=== PATIENT | female | born 1940 | race Caucasian/White ===

== ENCOUNTER 2016-11-17 14:24 | Inpatient (IN) | payer MEDICARE, BC ==
--- NOTE | 2016-11-17 15:45 | RAD ---
HISTORY: Pain after fall COMPARISONS: None VIEWS: 6, Frontal view of the chest with frontal and oblique views of the left hemithorax FINDINGS: There is no displaced rib fracture or pneumothorax. The cardiac silhouette is mildly enlarged. There is patchy linear opacification lung bases bilaterally. IMPRESSION: NO DISPLACED RIB FRACTURE OR PNEUMOTHORAX. CLINICALLY. BIBASILAR ATELECTASIS VERSUS CONSOLIDATION.
[2016-11-17] MEDS ORDERED: Morphine INJ* 4 MG/ML 1 ML CARPUJECT IM ONE (15:56)
[2016-11-17] MEDS ORDERED: Ondansetron ODT TAB* 4 MG PO ONE (15:56)
--- NOTE | 2016-11-17 16:39 | RAD ---
Indication: LEFT shoulder pain post fall. Comparison: January 04, 2013 chest radiograph. Technique: Internal rotation AP, external rotation Grashey, scapular Y, axillary views LEFT shoulder Report: Normal acromioclavicular and glenohumeral joint alignment. Negative for fracture. Moderate osteophytosis and capsular hypertrophy at the acromial clavicular joint with suggestion of small loose bodies at the AC joint versus extensive chondrocalcinosis and dystrophic calcification of the joint capsule. Mild osteophytic lipping at the glenohumeral joint and moderate joint space narrowing. Mild burden of calcific tendinopathy at the supraspinatus and infraspinatus. Unremarkable soft tissue contours. IMPRESSION: 1. 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 2. Less marked osteoarthritis at the glenohumeral joint. 3. Stigmata of calcific tendinopathy. 4. Negative for fracture.
[2016-11-17] MEDS ORDERED: oxyCODONE/Acetamin 5/325 MG* TAB PO ONE (17:42)
[2016-11-17] MEDS ORDERED: oxyCODONE TAB* 5 MG TAB PO ONE (20:56)
[2016-11-17] MEDS ORDERED: HYDROmorphone INJ* 1 MG/ML CARPUJECT SYRINGE IV SLOW PU ONE (21:28)
[2016-11-17 21:44] LABS: Hematocrit 36 % (35-47); Hemoglobin 11.6 g/dl (12.0-16.0); Mean Corpuscular HGB Conc 32 g/dl (31-36); Mean Corpuscular Hemoglobin 33 pg (27-31); Mean Corpuscular Volume 102 fL (80-97); Mean Platelet Volume 8 um3 (7.4-10.4); Red Blood Count 3.56 10^6/ul (4.0-5.4); Red Cell Distribution Width 14 % (10.5-15); White Blood Count 11.8 10^3/ul (3.5-10.8)
[2016-11-17 21:58] LABS: Albumin 3.9 g/dL (3.2-5.2); BUN/Creatinine Ratio 20.6 (8-20); Calcium 9.6 mg/dL (8.6-10.3); EGFR African American 33.3 (>60); EGFR Non-African American 25.9 (>60); Globulin 3.3 g/dL (2-4); Potassium 5.2 mmol/L (3.5-5.0); Total Bilirubin 0.5 mg/dL (0.2-1.0); Total Protein 7.2 g/dL (6.4-8.9)
--- NOTE | 2016-11-17 22:31 | RAD ---
INDICATION: Bruising and pain overlying the left flank after a fall from a standing height COMPARISON: None. TECHNIQUE: Multidetector CT images of the chest and abdomen were obtained from the lung apices to the pelvic inlet without intravenous contrast . CHEST: The lungs exhibit mild bilateral groundglass opacification as well as centrilobular emphysematous changes. There is no pneumothorax or large pleural effusion. There is no mediastinal or hilar lymphadenopathy. The heart and major vascular structures are grossly normal in appearance. There is coarse atherosclerotic calcification of the coronary arteries and arch of the aorta. There is nondisplaced fracture at the posterior left 12th rib (image 63), the posterior left eighth rib (image 34), the posterior left seventh rib (image 27), the posterior lateral left sixth rib (image 24) and the posterior lateral left fifth rib (image 19). The sixth rib fracture exhibits the greatest degree of displacement. Depicted best on the sagittal plane images (61 through 63) there is cortical irregularity at the tip of the scapula but the margins seem adequately corticated giving it more of a chronic appearance. There is no focal inflammatory change surrounding this appearance. ABDOMEN \T\ PELVIS: The liver, spleen, pancreas and left adrenal gland are grossly normal in appearance. The gallbladder is normal. At the medial limb of the left adrenal gland (image 52) there is an 11 mm fat density nodule. The kidneys are normal in appearance without focal mass, calcification or signs of hydronephrosis. The visualized portions of the small and large bowel are not distended. Distal colonic diverticula are noted, , none with focal inflammatory change. There is coarse atherosclerotic calcification of the abdominal aorta extending to the iliac bifurcation. Multifocal degenerative changes of the thoracic and upper lumbar spine include loss of intervertebral disc height and marginal osteophyte formation and lower thoracic and lumbar level vacuum disc phenomenon. No definite vertebral body fracture is identified. IMPRESSION: 1. Multiple posterior lateral left rib fractures as described above with only the 6th rib fracture exhibiting any significant displacement. There is no left-sided pneumothorax or large pleural effusion. 2. Cortical irregularity at the tip of the left scapula may been a fracture as well, but the margins indicate a more chronic process. 3. 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 There are no prior CT images to comment on chronicity. This finding can either be followed up or further characterized with multiphase CT or MRI of the abdomen according to an adrenal gland protocol. Clinical significance is doubtful. 4. Mild diffuse groundglass opacification and thickening of the interlobular septa could be due to chronic congestive heart failure or early interstitial lung disease. 5. There are additional chronic and degenerative changes described in the body the report unlikely to BE related to the patient's acute presentation.
[2016-11-17] MEDS ORDERED: NS 0.9% 500 ML BAG* 500 ML IV SCH (23:45)
[2016-11-17] MEDS ORDERED: Morphine INJ* 2 MG/ML 1 ML CARPUJECT IV PRN (23:57)
[2016-11-17] MEDS ORDERED: Acetaminophen TAB* 325 MG PO PRN (23:57)
[2016-11-18] MEDS ORDERED: Dextrose 50% Syringe 50 ML* 25 GM/50 ML SYRINGE IV PUSH PRN (00:03)
--- NOTE | 2016-11-18 00:08 | ED ---
I, Vasquez Moore, scribed for Roney Sims MD on 11/17/16 at 2322 . Progress - Progress Note Progress Note: 76yo female is here for left rib pain s/p mechanical fall. Signout pt from Dr. Schulz. Pending CT report. - Results/Orders Results/Orders: CT Chest/Abdomen W/O IMPRESSION: 1. Multiple posterior lateral left rib fractures as described above with only the 6th rib fracture exhibiting any significant displacement. There is no left-sided pneumothorax or large pleural effusion. 2. Cortical irregularity at the tip of the left scapula may been a fracture as well, but the margins indicate a more chronic process. 3. 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 There are no prior CT images to comment on chronicity. This finding can either be followed up or further characterized with multiphase CT or MRI of the abdomen according to an adrenal gland protocol. Clinical significance is doubtful. 4. Mild diffuse groundglass opacification and thickening of the interlobular septa could be due to chronic congestive heart failure or early interstitial lung disease. 5. There are additional chronic and degenerative changes described in the body the report unlikely to BE related to the patient's acute presentation. ED physician has reviewed the radiology report and agrees with the finding. Re-Evaluation - Re-Evaluation First Eval Re-Evaluation Time: 23:09 Comment: Reviewed CT report with the pt. Course/Dx - Course Course Of Treatment: Discussed with Dr. Vega (hospitalist) at [address] Vega will evaluate the pt. - Diagnoses Provider Diagnoses: Left rib fracture, possible scapular fracture The documentation as recorded by the Oscar poole Benjamin accurately reflects the service I personally performed and the decisions made by , Roney Sims MD.
[2016-11-18] MEDS ORDERED: Morphine INJ* 4 MG/ML 1 ML CARPUJECT ONE (00:54)
[2016-11-18] MEDS ORDERED: Morphine INJ* 4 MG/ML 1 ML CARPUJECT IV PRN (01:26)
[2016-11-18] MEDS: Lidocaine PATCH 5%* 1 PATCH TRANSDERM SCH (02:25)
[2016-11-18] MEDS: oxyCODONE TAB* 5 MG TAB PO PRN (02:28)
--- NOTE | 2016-11-18 02:59 | HP ---
CC: Dr. Lopez * HISTORY AND PHYSICAL: DATE OF ADMISSION: 11/17/16 PRIMARY CARE PHYSICIAN: Dr. Lopez CHIEF COMPLAINT: Status post fall and left chest pain. HISTORY OF PRESENT ILLNESS: The patient is a 76-year-old female with history of diabetes, hypertension, oxygen-dependent COPD who was picking up her pants today while in the bathroom and she tripped when she did that, fell and her left upper chest and left upper back hit the toilet seat. She had extreme pain afterwards and she came into ED for evaluation. Here a CT of the chest, abdomen and pelvis showed 5 broken ribs on the left side. She is going to be admitted for intractable pain and left-sided rib fractures. PAST MEDICAL HISTORY: 1. History of degenerative disk disease. 2. History of diabetes type 2. 3. Hypertension. 4. Hyperlipidemia. 5. Obesity. 6. COPD, oxygen dependent. 7. History of gout. 8. History of right leg ORIF. 9. Chronic kidney disease stage 3 due to diabetes. MEDICATIONS: Include: 1. Ultram 50 mg 3 times a day as needed. 2. Lantus insulin 42 units subcutaneously b.i.d. 3. Simvastatin 20 mg a day. 4. Neurontin 600 mg 3 times a day. 5. Levothyroxine 75 mcg daily. 6. Glipizide 10 mg b.i.d. 7. Potassium chloride 10 mEq daily. 8. Metformin 1000 mg b.i.d. 9. Atenolol with chlorthalidone 50/25 one tablet a day. 10. Amlodipine 2.5 mg daily. ALLERGIES: Multiple and include CEPHALEXIN, CI PIGMENT BLUE 63 from CYMBALTA, DULOXETINE, PENICILLINS, BACTRIM, and GANTRISIN. FAMILY HISTORY: Positive for mother with history of dementia and father with history of diabetes, heart disease, and polio. SOCIAL HISTORY: The patient had quit smoking in 1998. She denies any alcohol or drug use. She lives with her daughter who is a nurse and her . As a surrogate, she mentions both her and her daughter. Her 's name is Kevin Burch and daughter is Mary Schafer. REVIEW OF SYSTEMS: Please see history of present illness. Patient had been in her usual state of health until the fall. After her fall, she noted that severe left chest and left upper back pain. She denies losing consciousness with the fall. She stated that it was purely mechanical. She also denies losing consciousness after the fall. All the remaining 14 systems were reviewed with the patient and were otherwise negative. PHYSICAL EXAMINATION GENERAL: The patient is a pleasant 76-year-old female, whose BMI is 43. The patient is in no acute distress. Alert, awake, and oriented x3. VITAL SIGNS: Blood pressure of 141/96, heart rate of 56 and regular, respiratory rate 16, and oxygen saturation 90% on 2 L of oxygen nasal cannula, temperature of 98.2. HEENT: Head atraumatic and normocephalic. Eyes: Pupils are equal and reactive to light and accommodation. Oropharynx clear, mucosa moist. NECK: Supple. No JVD. No bruits bilaterally. RESPIRATORY: Coarse crackles at bilateral bases, otherwise clear. CARDIOVASCULAR: Regular rate and rhythm. No murmur. ABDOMEN: Soft and nontender. Bowel sounds are present in all 4 quadrants. EXTREMITIES: There is a trace bilateral ankle edema. Pulses +2 bilaterally. No clubbing or cyanosis. NEUROLOGIC: Speech clear. Cranial nerves II through XII are grossly intact. Motor strength is 5/5 bilaterally. PSYCHIATRIC: The patient is pleasant, cooperative with evaluation with no evidence of anxiety or depression. SKIN: The patient has a rather large area of ecchymosis overlying the left chest and left upper back. DIAGNOSTIC STUDIES/LAB DATA: Sodium of 137, potassium of 5.2, chloride 109, carbon dioxide 20, BUN 39, creatinine 1.89. Liver function tests unremarkable. White blood cell count of 11.8, hemoglobin of 11.6, hematocrit of 36, and MCV of 102, and platelets of 212. CT of chest and abdomen - impression: "Multiple posterolateral rib fractures as described above with only the 6th rib fracture exhibiting any significant displacement. There is no left-sided pneumothorax or pleural effusion. Cortical irregularity at the tip of the left scapula may be a fracture as well, but the margins indicate a more chronic process. 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 There are no prior CT images to comment on chronicity. This finding is either to be followed up with further images of CT or MRI of the abdomen according to adrenal gland protocol. Clinical significance is doubtful. Mild diffuse ground-glass opacification and thickening of the interlobular septa could be due to chronic congestive heart failure or an interstitial lung disease. There are additional chronic and degenerative changes as described in the body of the report, likely to be related to the patient's acute presentation." Shoulder x-ray on the left - impression: "Advanced osteoarthritis of acromioclavicular joint with progression. Less marked osteoarthritis of the glenohumeral joint. Stigmata of calcific tendinopathy. Negative for fracture. " ASSESSMENT AND PLAN: 1. Patient has a chest trauma after a fall. She suffered from 5 rib fractures , out of them only one is displaced. So far she is going to be admitted for pain control. There is no noted pneumothorax and no other trauma. Dilaudid made her "woozy and weak." I am going to continue the patient on morphine and oxycodone. She may require a nerve block in the future if she continues to have problems with pain control. 2. In regards to the patient's diabetes, her glipizide is going to be continued. Metformin is going to be held. The patient is going to be placed on 10 units of Lantus and insulin sliding scale. 3. In regards to the patient's hypertension, I will continue atenolol for the time being and observe the patient's blood pressure. 4. Patient's hyperkalemia is mild. I will hold the patient's lisinopril for the time being. 5. In regards to patient's chronic obstructive pulmonary disease, it is not an exacerbation. She is going to be continued on Advair and oxygen supplementation. 6. For DVT prophylaxis. The patient is going to be placed on heparin subcutaneously. 7. Due to her recent fall, Physical Therapy and Occupational Therapy will see patient in evaluation. 8. The patient's code status is full. TIME SPENT: Please note that approximately 62 minutes was spent on the patient' s admission, more than half that time was spent [id number] with the patient during the interview and physical exam. [id number]/[facility] #: [id number] LIDIA
[2016-11-18] MEDS: Levothyroxine TAB* 75 MCG TAB PO SCH (06:12)
[2016-11-18 06:16] LABS: Hematocrit 33 % (35-47); Hemoglobin 10.7 g/dl (12.0-16.0); Mean Corpuscular HGB Conc 32 g/dl (31-36); Mean Corpuscular Hemoglobin 33 pg (27-31); Mean Corpuscular Volume 102 fL (80-97); Mean Platelet Volume 8 um3 (7.4-10.4); Red Blood Count 3.26 10^6/ul (4.0-5.4); Red Cell Distribution Width 15 % (10.5-15); White Blood Count 11.3 10^3/ul (3.5-10.8)
[2016-11-18] MEDS: Heparin VIAL(*) 5000 UNITS/ML VIAL (FIVE THOUSAND) SUBCUT SCH ×3 (06:16→21:44)
[2016-11-18 06:18] LABS: Comments Flag Yes
[2016-11-18 06:19] LABS: Add Diff/Slide Review? Slide Review Added
[2016-11-18 06:28] LABS: BUN/Creatinine Ratio 21.9 (8-20); Calcium 9.1 mg/dL (8.6-10.3); EGFR African American 34.6 (>60); EGFR Non-African American 26.9 (>60)
[2016-11-18 07:48] LABS: Potassium 5.3 mmol/L (3.5-5.0)
[2016-11-18] MEDS: Insulin LISPRO* 1 UNITS UNIT SUBCUT SCH ×4 (08:22→21:15)
[2016-11-18] MEDS: Insulin GLARGINE(*) 1 UNITS UNIT SUBCUT SCH (08:23)
[2016-11-18] MEDS: amLODIPine TAB* 5 MG PO SCH (08:24)
[2016-11-18] MEDS: Gabapentin CAP(*) 300 MG PO SCH ×3 (08:24→21:44)
[2016-11-18] MEDS: Atenolol TAB* 50 MG PO SCH (08:25)
[2016-11-18] MEDS: Senna TAB PO SCH ×2 (08:25→21:44)
[2016-11-18] MEDS: Docusate CAP* 100 MG PO SCH ×2 (08:25→21:43)
[2016-11-18] MEDS: glipiZIDE TAB* 5 MG PO SCH ×2 (08:25→21:44)
[2016-11-18] MEDS: Lidocaine Patch REMOVE* 1 NOTE MISC PATCH OFF SCH (13:30)
--- NOTE | 2016-11-18 14:19 | PN ---
Subjective Date of Service: 11/18/16 Interval History: Patient seen this morning. Reports continued rib pain with movement and very deep breathing, not too bothersome when at rest. Reports that current dose of morphine does not touch the pain. Family History: Unchanged from Admission Social History: Unchanged from Admission Past Medical History: Unchanged from Admission Objective Active Medications: Acetaminophen (Tylenol Tab*) 650 mg PO Q4H PRN Amlodipine Besylate (Norvasc Tab*) 2.5 mg PO DAILY G[facility] Atenolol (Tenormin Tab*) 50 mg PO DAILY [facility] Dextrose (D50w Syringe 50 Ml*) 12.5 gm IV PUSH .FOR FS < 60 - SS PRN Docusate Sodium (Colace Cap*) 100 mg PO BID G[place] Gabapentin (Neurontin Cap(*)) 600 mg PO TID [facility] Glipizide (Glucotrol Tab*) 10 mg PO BID [facility] Heparin Sodium (Porcine) (Heparin Vial(*)) 5,000 units SUBCUT Q8HR [facility] Insulin Glargine (Lantus(*)) 10 units SUBCUT Q24H [place] Insulin Human Lispro (Humalog*) 0 units SUBCUT ACHS [facility] Levothyroxine Sodium (Synthroid Tab*) 75 mcg PO 0600 [place] Lidocaine (Lidoderm 5% Patch*) 1 patch TRANSDERM 0900 [place] Morphine Sulfate (Morphine Inj (Syringe)*) 6 mg IV Q4H PRN Oxycodone HCl (Roxycodone Tab*) 10 mg PO Q4H PRN Pharmacy Profile Note (Lidocaine Patch Remove*) 1 note PATCH OFF 2100 [place] Senna (Senokot Tab*) 1 tab PO BID ON LICENSE OF [facility] Vital Signs 11/18/16 11/18/16 11/18/16 00:00 00:01 00:30 Temperature Pulse Rate 56 56 50 Respiratory Rate Blood Pressure 158/60 80/58 (mmHg) O2 Sat by Pulse 87 88 94 Oximetry 11/18/16 11/18/16 11/18/16 00:40 00:43 00:50 Temperature 97.9 F Pulse Rate 58 55 Respiratory 16 18 Rate Blood Pressure 154/59 154/59 (mmHg) O2 Sat by Pulse 96 92 Oximetry 11/18/16 11/18/16 11/18/16 02:00 02:28 03:47 Temperature 97.7 F 97.8 F Pulse Rate 57 51 Respiratory 18 22 20 Rate Blood Pressure 161/40 136/41 (mmHg) O2 Sat by Pulse 97 95 Oximetry Oxygen Devices in Use Now: Nasal Cannula Appearance: Elderly, obese, F, laying in bed in NAD Eyes: No Scleral Icterus Ears/Nose/Mouth/Throat: Mucous Membranes Moist Neck: NL Appearance and Movements; NL JVP Respiratory: Symmetrical Chest Expansion and Respiratory Effort, - - Diminished in bases Cardiovascular: NL Sounds; No Murmurs; No JVD, RRR Abdominal: NL Sounds; No Tenderness; No Distention Lymphatic: No Cervical Adenopathy Extremities: No Edema Skin: - - Ecchymosis along L later chest wall and back Neurological: Alert and Oriented x 3 Result Diagrams: 11/18/16 05:54 11/18/16 05:54 Assess/Plan/Problems-Billing Assessment: Mechanical fall and subsequent rib fxs in a 76 yo F with hx of HTN, HLD, obesity , O2 dependent COPD, DM - Patient Problems (1) Rib fractures Current Visit: Yes Comment: Pain control. Will increase prn morphine. Incentive spirometer. PT/OT (2) Diabetes Current Visit: Yes Comment: Continue HISS and Lantus. Holding home metformin. Continue Glipizide. (3) HTN (hypertension) Current Visit: Yes Comment: Continue Atenolol. Holding home Lisinopril. (4) O2 dependent Current Visit: Yes Comment: Patient denies COPD but is on home O2. Will need med rec. (5) DVT prophylaxis Current Visit: Yes Comment: HSQ Status and Disposition: Inpatient for continued pain control. ?need for GENIA
[2016-11-18] MEDS: Morphine INJ* 10 MG/ML 1 ML CARPUJECT IV PRN ×2 (17:39→21:45)
[2016-11-19] MEDS: oxyCODONE TAB* 5 MG TAB PO PRN ×2 (04:42→09:33)
[2016-11-19] MEDS: Levothyroxine TAB* 75 MCG TAB PO SCH (05:52)
[2016-11-19] MEDS: Heparin VIAL(*) 5000 UNITS/ML VIAL (FIVE THOUSAND) SUBCUT SCH ×3 (05:52→21:39)
[2016-11-19] MEDS: Morphine INJ* 10 MG/ML 1 ML CARPUJECT IV PRN (07:45)
[2016-11-19] MEDS: Insulin LISPRO* 1 UNITS UNIT SUBCUT SCH ×4 (08:43→22:19)
--- NOTE | 2016-11-19 09:05 | PN ---
Subjective Date of Service: 11/19/16 Interval History: Patient seen this morning. Nursing reported she had little pain control overnight and she received dose of morphine within the past two hours. On exam patient is very lethargic, will awaken to questions but quickly fall back asleep. While awake says she is in 10/10 pain but then dozes off again. Family History: Unchanged from Admission Social History: Unchanged from Admission Past Medical History: Unchanged from Admission Objective Active Medications: Acetaminophen (Tylenol Tab*) 975 mg PO TID [facility] Allopurinol (Zyloprim Tab*) 100 mg PO DAILY [facility] Amlodipine Besylate (Norvasc Tab*) 2.5 mg PO DAILY [facility] Last Admin: 11/18/16 08:24 Dose: 2.5 mg Atenolol (Tenormin Tab*) 50 mg PO DAILY [facility] Last Admin: 11/18/16 08:25 Dose: 50 mg Atorvastatin Calcium (Lipitor*) 10 mg PO DAILY [facility] Calcitriol (Rocaltrol Cap*) 0.25 mcg PO DAILY [facility] Dextrose (D50w Syringe 50 Ml*) 12.5 gm IV PUSH .FOR FS < 60 - SS PRN PRN Reason: FS < 60 Docusate Sodium (Colace Cap*) 100 mg PO BID [facility] Last Admin: 11/18/16 21:43 Dose: 100 mg Gabapentin (Neurontin Cap(*)) 600 mg PO TID [facility] Last Admin: 11/18/16 21:44 Dose: 600 mg Glipizide (Glucotrol Tab*) 10 mg PO BID [facility] Last Admin: 11/18/16 21:44 Dose: 10 mg Heparin Sodium (Porcine) (Heparin Vial(*)) 5,000 units SUBCUT Q8HR [facility] Last Admin: 11/19/16 05:52 Dose: 5,000 units Insulin Glargine (Lantus(*)) 10 units SUBCUT Q24H [facility] Last Admin: 11/18/16 08:23 Dose: 10 units Insulin Human Lispro (Humalog*) 0 units SUBCUT ACHS [facility] PRN Reason: Protocol Last Admin: 11/19/16 08:43 Dose: Not Given Levothyroxine Sodium (Synthroid Tab*) 75 mcg PO 0600 [facility] Last Admin: 11/19/16 05:52 Dose: 75 mcg Lidocaine (Lidoderm 5% Patch*) 1 patch TRANSDERM 0900 [facility] Last Admin: 11/18/16 02:25 Dose: 1 patch Morphine Sulfate (Morphine Inj (Syringe)*) 6 mg IV Q4H PRN PRN Reason: PAIN Last Admin: 11/19/16 07:45 Dose: 6 mg Oxycodone HCl (Roxycodone Tab*) 10 mg PO Q4H PRN PRN Reason: PAIN Last Admin: 11/19/16 04:42 Dose: 10 mg Pharmacy Profile Note (Lidocaine Patch Remove*) 1 note PATCH OFF 2100 [facility] Last Admin: 11/18/16 13:30 Dose: 1 note Senna (Senokot Tab*) 1 tab PO BID [facility] Last Admin: 11/18/16 21:44 Dose: 1 tab Vital Signs 11/18/16 11/18/16 11/18/16 09:26 09:53 10:24 Temperature 97.4 F Pulse Rate 46 Respiratory 20 20 18 Rate Blood Pressure 145/51 (mmHg) O2 Sat by Pulse 97 Oximetry 11/18/16 11/18/16 11/18/16 11:46 13:24 15:24 Temperature 97.6 F Pulse Rate 46 Respiratory 16 18 18 Rate Blood Pressure 133/76 (mmHg) O2 Sat by Pulse 92 Oximetry 11/19/16 11/19/16 06:51 07:45 Temperature 98.0 F Pulse Rate 47 Respiratory 28 20 Rate Blood Pressure 151/46 (mmHg) O2 Sat by Pulse 90 Oximetry Oxygen Devices in Use Now: Nasal Cannula - 3L Appearance: Elderly, F, laying in bed, lethargic Eyes: No Scleral Icterus Ears/Nose/Mouth/Throat: - - Dry MM Neck: NL Appearance and Movements; NL JVP Respiratory: Symmetrical Chest Expansion and Respiratory Effort, - - Diminished in bases Cardiovascular: NL Sounds; No Murmurs; No JVD, RRR Abdominal: NL Sounds; No Tenderness; No Distention Lymphatic: No Cervical Adenopathy Extremities: No Edema Skin: No Rash or Ulcers Neurological: - - Lethargic, oriented, no focal deficits Result Diagrams: 11/18/16 05:54 11/19/16 14:09 Assess/Plan/Problems-Billing Assessment: Mechanical fall and subsequent rib fxs in a 76 yo F with hx of HTN, HLD, obesity , O2 dependent COPD, DM - Patient Problems (1) Rib fractures Current Visit: Yes Comment: Pain control. Will hold on any increases for now and monitor mental status prior to additional narcotics. Stop gabapentin. Will add ATC tylenol. Continue Lidoderm patch. Incentive spirometer. PT/OT (2) Diabetes Current Visit: Yes Comment: Continue HISS and Lantus. Holding home metformin. Continue Glipizide. (3) CASE (acute kidney injury) Current Visit: Yes Comment: on CKD. Creatinine bumped today, ?pre-renal, poor PO intake. Will give 1L IVF. Check ulytes, UA. Stop gabapentin. (4) HTN (hypertension) Current Visit: Yes Comment: Continue Atenolol. Holding home Lisinopril. (5) O2 dependent Current Visit: Yes Comment: Patient denies COPD but is on home O2. (6) DVT prophylaxis Current Visit: Yes Comment: HSQ Status and Disposition: Inpatient for continued pain control. ?need for GENIA
[2016-11-19] MEDS: Lidocaine PATCH 5%* 1 PATCH TRANSDERM SCH (09:23)
[2016-11-19] MEDS: Atenolol TAB* 50 MG PO SCH (09:31)
[2016-11-19] MEDS: Insulin GLARGINE(*) 1 UNITS UNIT SUBCUT SCH (09:31)
[2016-11-19] MEDS: Atorvastatin* 10 MG TAB PO SCH (09:32)
[2016-11-19] MEDS: Allopurinol TAB* 100 MG PO SCH (09:32)
[2016-11-19] MEDS: Senna TAB PO SCH ×2 (09:32→21:40)
[2016-11-19] MEDS: Gabapentin CAP(*) 300 MG PO SCH (09:32)
[2016-11-19] MEDS: glipiZIDE TAB* 5 MG PO SCH (09:32)
[2016-11-19] MEDS: amLODIPine TAB* 5 MG PO SCH (09:33)
[2016-11-19] MEDS: Docusate CAP* 100 MG PO SCH ×2 (09:33→21:40)
[2016-11-19] MEDS: Calcitriol CAP* 0.25 MCG PO SCH (09:40)
[2016-11-19 10:56] LABS: BUN/Creatinine Ratio 18.7 (8-20); EGFR African American 21.8 (>60); Potassium 5.8 mmol/L (3.5-5.0)
[2016-11-19] MEDS ORDERED: HYDROmorphone INJ* 1 MG/ML CARPUJECT SYRINGE IV SLOW PU PRN (11:50)
[2016-11-19] MEDS ORDERED: NS 0.9% 1000 ML* 1,000 ML IV SCH (12:00)
[2016-11-19] MEDS: Acetaminophen TAB* 325 MG PO SCH ×2 (13:53→21:39)
[2016-11-19 14:39] LABS: BUN/Creatinine Ratio 18.2 (8-20); EGFR African American 20.2 (>60); EGFR Non-African American 15.7 (>60)
[2016-11-19 15:13] LABS: Potassium 6.1 mmol/L (3.5-5.0)
[2016-11-19] MEDS ORDERED: Sodium Polystyrene ORAL.SOL* 15 GM/60 ML BTL PO ONE (15:30)
[2016-11-19 15:34] LABS: Phosphorus 5.5 mg/dL (2.5-5.0)
[2016-11-19 15:59] LABS: FIO2 2
[2016-11-19 16:01] LABS: PCO2 Arterial 45 mmHg (35-45)
[2016-11-19] MEDS ORDERED: Naloxone* 0.4 MG/ML 1 ML VIAL IV PUSH PRN (16:13)
--- NOTE | 2016-11-19 17:58 | PN ---
Hospitalist Progress Note Patient seen multiple times throughout the day with daughter present. In the afternoon she became less lethargic although remains somewhat confused and delirious. Suspect this is due to renal failure and poor clearance of morphine and gabapentin. ABG did not show respiratory acidosis, held on giving narcan as patient became more alert. For now will hold narcotics, if she becomes more coherent and has significant pain, can consider restarting her home Tramadol to begin with. K remained elevated on PM check, gave Kayexalate.
[2016-11-19] MEDS: Lidocaine Patch REMOVE* 1 NOTE MISC PATCH OFF SCH (22:20)
[2016-11-20 00:39] LABS: Urine Bacteria Absent (Absent); Urine Bilirubin Negative (Negative); Urine Glucose Negative (Negative); Urine Nitrite Negative (Negative)
[2016-11-20] MEDS: Heparin VIAL(*) 5000 UNITS/ML VIAL (FIVE THOUSAND) SUBCUT SCH ×3 (05:40→22:02)
[2016-11-20] MEDS: Levothyroxine TAB* 75 MCG TAB PO SCH (05:40)
--- NOTE | 2016-11-20 08:15 | PN ---
Subjective Date of Service: 11/20/16 Interval History: Patient seen this morning. More alert and oriented. Recalls why she is here and what happened. Reports feeling better than yesterday, still with pain. Not taking much PO. Denies SOB, subjective f/c Family History: Unchanged from Admission Social History: Unchanged from Admission Past Medical History: Unchanged from Admission Objective Active Medications: Acetaminophen (Tylenol Tab*) 975 mg PO TID [facility] Allopurinol (Zyloprim Tab*) 100 mg PO DAILY [facility] Amlodipine Besylate (Norvasc Tab*) 2.5 mg PO DAILY [facility] Atenolol (Tenormin Tab*) 50 mg PO DAILY [facility] Atorvastatin Calcium (Lipitor*) 10 mg PO DAILY [facility] Calcitriol (Rocaltrol Cap*) 0.25 mcg PO DAILY [facility] Dextrose (D50w Syringe 50 Ml*) 12.5 gm IV PUSH .FOR FS < 60 - SS PRN Docusate Sodium (Colace Cap*) 100 mg PO BID [facility] Heparin Sodium (Porcine) (Heparin Vial(*)) 5,000 units SUBCUT Q8HR [facility] Insulin Glargine (Lantus(*)) 10 units SUBCUT Q24H [facility] Insulin Human Lispro (Humalog*) 0 units SUBCUT ACHS [facility] Levothyroxine Sodium (Synthroid Tab*) 75 mcg PO 0600 [facility] Lidocaine (Lidoderm 5% Patch*) 1 patch TRANSDERM 0900 [facility] Pharmacy Profile Note (Lidocaine Patch Remove*) 1 note PATCH OFF 2100 [facility] Senna (Senokot Tab*) 1 tab PO BID [facility] Vital Signs 11/19/16 11/19/16 11/19/16 08:45 09:32 09:33 Temperature Pulse Rate Respiratory 20 22 22 Rate Blood Pressure (mmHg) O2 Sat by Pulse Oximetry 11/19/16 11/19/16 11/20/16 20:05 23:42 02:22 Temperature 100.5 F 100.1 F 98.8 F Pulse Rate 51 52 50 Respiratory 20 24 24 Rate Blood Pressure 127/33 122/58 131/43 (mmHg) O2 Sat by Pulse 98 96 97 Oximetry Oxygen Devices in Use Now: Simple Face Mask - 5L Appearance: Elderly, F, laying in bed in mild distress Eyes: No Scleral Icterus Ears/Nose/Mouth/Throat: - - Dry MM Neck: NL Appearance and Movements; NL JVP Respiratory: - - Mild tachypnea, lungs seem clear at bases but exam limited due to pain Cardiovascular: NL Sounds; No Murmurs; No JVD, RRR Abdominal: NL Sounds; No Tenderness; No Distention Lymphatic: No Cervical Adenopathy Extremities: No Edema Skin: No Rash or Ulcers Neurological: Alert and Oriented x 3 Result Diagrams: 11/18/16 05:54 11/19/16 14:09 Assess/Plan/Problems-Billing Assessment: Mechanical fall and subsequent rib fxs in a 76 yo F with hx of HTN, HLD, obesity , O2 dependent COPD, DM - Patient Problems (1) Rib fractures Current Visit: Yes Comment: Continue ATC tylenol. Now that mental status improved will start PO tramadol, if tolerates and still has pain can go from there. Holding morphine due to renal failure. Continue Lidoderm patch. Incentive spirometer. PT/OT (2) Fever Current Visit: Yes Comment: Low grade. Concern for possible PNA due to splinting. CBC and CXR (3) Diabetes Current Visit: Yes Comment: BGs low this morning. Hold Glipizide and Lantus. Continue HISS. Holding home metformin. (4) CASE (acute kidney injury) Current Visit: Yes Comment: on CKD. Today's BMP is pending. Got 1L additinal IVF today, may need more as she is not taking much PO. FeNa <1%. No signs of infection. Hold renally-cleared centrally acting meds. Got kayexalate yesterday for hyperkalemia. (5) HTN (hypertension) Current Visit: Yes Comment: Continue Atenolol. Holding home Lisinopril. (6) O2 dependent Current Visit: Yes Comment: Patient denies COPD but is on home O2. (7) DVT prophylaxis Current Visit: Yes Comment: HSQ Status and Disposition: Inpatient for continued pain control, renal failure
[2016-11-20] MEDS: Insulin LISPRO* 1 UNITS UNIT SUBCUT SCH ×4 (08:18→21:05)
--- NOTE | 2016-11-20 08:30 | RAD ---
Indication: Hypoxia, shortness of breath. Single frontal view of the chest performed at 0805 hours was reviewed. Comparison is made with previous exam dated January 04, 2013. Cardiomegaly with interstitial edema is noted. There may be pleural effusions noted. IMPRESSION: CARDIOMEGALY WITH INTERSTITIAL EDEMA LIKELY PLEURAL EFFUSIONS.
[2016-11-20 08:55] LABS: Hematocrit 31 % (35-47); Hemoglobin 9.9 g/dl (12.0-16.0); Mean Corpuscular HGB Conc 32 g/dl (31-36); Mean Corpuscular Hemoglobin 33 pg (27-31); Mean Corpuscular Volume 103 fL (80-97); Mean Platelet Volume 8 um3 (7.4-10.4); Red Blood Count 2.99 10^6/ul (4.0-5.4); Red Cell Distribution Width 15 % (10.5-15); White Blood Count 13.3 10^3/ul (3.5-10.8)
[2016-11-20 09:09] LABS: Comments Flag Yes
[2016-11-20 09:13] LABS: BUN/Creatinine Ratio 18.3 (8-20); Calcium 8.7 mg/dL (8.6-10.3); EGFR African American 17.3 (>60); EGFR Non-African American 13.4 (>60)
[2016-11-20 09:18] LABS: Potassium 5.2 mmol/L (3.5-5.0)
[2016-11-20] MEDS ORDERED: NS 0.9% 1000 ML* 1,000 ML IV SCH (09:30)
[2016-11-20] MEDS: amLODIPine TAB* 5 MG PO SCH (09:44)
[2016-11-20] MEDS: Acetaminophen TAB* 325 MG PO SCH ×3 (09:45→20:51)
[2016-11-20] MEDS: Calcitriol CAP* 0.25 MCG PO SCH (09:47)
[2016-11-20] MEDS: Allopurinol TAB* 100 MG PO SCH (09:50)
[2016-11-20] MEDS: Senna TAB PO SCH ×2 (09:50→20:51)
[2016-11-20] MEDS: Docusate CAP* 100 MG PO SCH ×2 (09:50→20:51)
[2016-11-20] MEDS: Atorvastatin* 10 MG TAB PO SCH (09:50)
[2016-11-20] MEDS: Lidocaine PATCH 5%* 1 PATCH TRANSDERM SCH (10:09)
[2016-11-20] MEDS: Atenolol TAB* 50 MG PO SCH (11:19)
[2016-11-20] MEDS: traMADol TAB* 50 MG PO PRN ×2 (11:27→20:51)
[2016-11-20] MEDS ORDERED: Levofloxacin 500 MG IVPREMIX(* 500 MG/100 ML BAG IVPB ONE (15:00)
[2016-11-20 17:08] LABS: BUN/Creatinine Ratio 19.8 (8-20); Calcium 8.6 mg/dL (8.6-10.3); EGFR African American 17.9 (>60); EGFR Non-African American 13.9 (>60); Potassium 5.3 mmol/L (3.5-5.0)
[2016-11-20] MEDS: Lidocaine Patch REMOVE* 1 NOTE MISC PATCH OFF SCH (21:05)
[2016-11-21] MEDS: Heparin VIAL(*) 5000 UNITS/ML VIAL (FIVE THOUSAND) SUBCUT SCH ×3 (05:26→22:21)
[2016-11-21] MEDS: Levothyroxine TAB* 75 MCG TAB PO SCH (05:27)
[2016-11-21 06:32] LABS: Hematocrit 30 % (35-47); Hemoglobin 9.7 g/dl (12.0-16.0); Mean Corpuscular HGB Conc 32 g/dl (31-36); Mean Corpuscular Hemoglobin 33 pg (27-31); Mean Corpuscular Volume 102 fL (80-97); Mean Platelet Volume 8 um3 (7.4-10.4); Red Blood Count 2.94 10^6/ul (4.0-5.4); Red Cell Distribution Width 15 % (10.5-15)
[2016-11-21 06:35] LABS: Comments Flag Yes
[2016-11-21 06:46] LABS: BUN/Creatinine Ratio 22.3 (8-20); Calcium 8.5 mg/dL (8.6-10.3); EGFR African American 20.3 (>60); EGFR Non-African American 15.8 (>60)
[2016-11-21 06:50] LABS: Potassium 5.4 mmol/L (3.5-5.0)
[2016-11-21] MEDS: Insulin LISPRO* 1 UNITS UNIT SUBCUT SCH ×4 (08:08→21:14)
[2016-11-21] MEDS: Ondansetron INJ* 2 MG/ML VIAL IV PRN (09:01)
[2016-11-21] MEDS: Allopurinol TAB* 100 MG PO SCH (09:17)
[2016-11-21] MEDS: Acetaminophen TAB* 325 MG PO SCH ×3 (09:17→20:48)
[2016-11-21] MEDS: Calcitriol CAP* 0.25 MCG PO SCH (09:17)
[2016-11-21] MEDS: Senna TAB PO SCH ×2 (09:17→20:49)
[2016-11-21] MEDS: Docusate CAP* 100 MG PO SCH ×2 (09:17→20:49)
[2016-11-21] MEDS: amLODIPine TAB* 5 MG PO SCH (09:17)
[2016-11-21] MEDS: Atorvastatin* 10 MG TAB PO SCH (09:17)
[2016-11-21] MEDS: Lidocaine PATCH 5%* 1 PATCH TRANSDERM SCH (09:26)
[2016-11-21] MEDS: Atenolol TAB* 50 MG PO SCH (09:27)
--- NOTE | 2016-11-21 10:26 | PN ---
Subjective Date of Service: 11/21/16 Interval History: Pt is feeling poorly. She just got back into bed from the chair. She states even at rest she is having uncontrolled pain. She denies any SOB. She has not had a BM since this past Monday. Family History: Unchanged from Admission Social History: Unchanged from Admission Past Medical History: Unchanged from Admission Objective Active Medications: Acetaminophen (Tylenol Tab*) 975 mg PO TID [facility] Last Admin: 11/21/16 09:17 Dose: 975 mg Allopurinol (Zyloprim Tab*) 100 mg PO DAILY [facility] Last Admin: 11/21/16 09:17 Dose: 100 mg Amlodipine Besylate (Norvasc Tab*) 2.5 mg PO DAILY [facility] Last Admin: 11/21/16 09:17 Dose: 2.5 mg Atenolol (Tenormin Tab*) 25 mg PO DAILY [facility] Atorvastatin Calcium (Lipitor*) 10 mg PO DAILY [facility] Last Admin: 11/21/16 09:17 Dose: 10 mg Calcitriol (Rocaltrol Cap*) 0.25 mcg PO DAILY [facility] Last Admin: 11/21/16 09:17 Dose: 0.25 mcg Dextrose (D50w Syringe 50 Ml*) 12.5 gm IV PUSH .FOR FS < 60 - SS PRN PRN Reason: FS < 60 Docusate Sodium (Colace Cap*) 100 mg PO BID [facility] Last Admin: 11/21/16 09:17 Dose: 100 mg Heparin Sodium (Porcine) (Heparin Vial(*)) 5,000 units SUBCUT Q8HR [facility] Last Admin: 11/21/16 05:26 Dose: 5,000 units Levofloxacin/Dextrose (Levaquin 250 Mg Ivpremx(*)) 250 mg in 50 mls @ 50 mls/ hr IVPB Q48H [facility] Insulin Human Lispro (Humalog*) 0 units SUBCUT ACHS [facility] PRN Reason: Protocol Last Admin: 11/21/16 08:08 Dose: Not Given Levothyroxine Sodium (Synthroid Tab*) 75 mcg PO 0600 [facility] Last Admin: 11/21/16 05:27 Dose: 75 mcg Lidocaine (Lidoderm 5% Patch*) 1 patch TRANSDERM 09 [facility] Last Admin: 11/21/16 09:26 Dose: 1 patch Nystatin (Nystatin Top Powder*) 1 applic TOPICAL TID PRN PRN Reason: [facility] Ondansetron HCl (Zofran Inj*) 4 mg IV Q6H PRN PRN Reason: NAUSEA Last Admin: 11/21/16 09:01 Dose: 4 mg Pharmacy Profile Note (Lidocaine Patch Remove*) 1 note PATCH OFF 2100 [facility] Last Admin: 11/20/16 21:05 Dose: 1 note Senna (Senokot Tab*) 1 tab PO BID [facility] Last Admin: 11/21/16 09:17 Dose: 1 tab Tramadol HCl (Ultram*) 50 mg PO Q6H PRN PRN Reason: PAIN Last Admin: 11/20/16 20:51 Dose: 50 mg Vital Signs 11/20/16 11/20/16 11/20/16 11:27 13:27 15:33 Temperature 98.2 F Pulse Rate 55 Respiratory 20 16 20 Rate Blood Pressure 149/54 (mmHg) O2 Sat by Pulse 97 Oximetry 11/20/16 11/20/16 11/20/16 16:00 19:46 20:34 Temperature Pulse Rate 49 Respiratory 16 16 Rate Blood Pressure 138/48 (mmHg) O2 Sat by Pulse 97 97 Oximetry 11/20/16 11/20/16 11/20/16 20:51 22:51 23:51 Temperature 98.2 F Pulse Rate 54 Respiratory 18 20 20 Rate Blood Pressure 126/36 (mmHg) O2 Sat by Pulse 96 Oximetry 11/21/16 02:47 Temperature 97.4 F Pulse Rate 60 Respiratory 20 Rate Blood Pressure 143/39 (mmHg) O2 Sat by Pulse 97 Oximetry Oxygen Devices in Use Now: Nasal Cannula - 3L Appearance: Elderly female sitting up in bed, NAD Eyes: No Scleral Icterus Ears/Nose/Mouth/Throat: Mucous Membranes Moist Respiratory: Symmetrical Chest Expansion and Respiratory Effort, Clear to Auscultation Cardiovascular: NL Sounds; No Murmurs; No JVD, RRR, No Edema Abdominal: NL Sounds; No Tenderness; No Distention Extremities: No Clubbing, Cyanosis Skin: No Rash or Ulcers, No Nodules or Sclerosis Neurological: Alert and Oriented x 3 Result Diagrams: 11/21/16 06:03 11/21/16 06:03 Assess/Plan/Problems-Billing Mechanical fall and subsequent rib fxs in a 76 yo F with hx of HTN, HLD, obesity , O2 dependent COPD and DM. - Patient Problems (1) Rib fractures Current Visit: Yes Status: Acute Code(s): S22.39XA - FRACTURE OF ONE RIB, UNSP SIDE, INIT FOR CLOS FX SNOMED Code(s): 37807800 Comment: The patient has posterolateral rib fractures on the left. Her pain is uncontrolled will continue ATC tylenol and start methadone 5mg BID to see if her pain is improved. Tramadol does not help at this time but perhaps with the methadone on board the tramadol will be enough for breakthrough pain. Continue lidoderm patch. Continue PT/OT. (2) Fever Current Visit: Yes Status: Acute Code(s): R50.9 - FEVER, UNSPECIFIED SNOMED Code(s): 145987570 Comment: The patient had a low grade fever on 11/19/16. WBC count and CXR are concerning for pna related to splinting from her rib fractures. Will continue levaquin renally dosed. (3) Acute kidney injury superimposed on CKD Current Visit: Yes Status: Acute Code(s): N17.9 - ACUTE KIDNEY FAILURE, UNSPECIFIED; N18.9 - CHRONIC KIDNEY DISEASE, UNSPECIFIED SNOMED Code(s): 91298515 Comment: The patient has baseline stage III CKD with a baseline creatinine around 1.8 who developed acute kidney failure while in the hospital-? secondary to poor oral intake. Her creatinine peaked at 3.34 and has now trended down to 2.91. IVF has been stopped. Encourage good oral intake. Will follow up BMP tomorrow. (4) HTN (hypertension) Current Visit: Yes Status: Acute Code(s): I10 - ESSENTIAL (PRIMARY) HYPERTENSION SNOMED Code(s): 44980694 Comment: BP is under fair control on amlodipine daily (atenolol has been held intermittently). (5) Diabetes Current Visit: Yes Status: Acute Code(s): E11.9 - TYPE 2 DIABETES MELLITUS WITHOUT COMPLICATIONS SNOMED Code(s): 81890614 Comment: Sugars remain slightly low to low normal. Continue to hold glipizide and metformin (pt should not be on this any further as her baseline creatinine is elevated). Continue the lispro sliding scale for now. I suspect her sugars may be down because of her worsened renal function. (6) COPD (chronic obstructive pulmonary disease) Current Visit: Yes Status: Acute Code(s): J44.9 - CHRONIC OBSTRUCTIVE PULMONARY DISEASE, UNSPECIFIED SNOMED Code(s): 39177183 Comment: No signs of exacerbation at this time. She has COPD and chronic hypoxic respiratory failure requiring continous O2 supplementation at 2L. (7) DVT prophylaxis Current Visit: Yes Status: Acute Code(s): FRX9629 - SNOMED Code(s): 322783064 Comment: SQ heparin (8) Full code status Current Visit: Yes Status: Acute Code(s): Z78.9 - OTHER SPECIFIED HEALTH STATUS SNOMED Code(s): 414738289 Status and Disposition: Inpatient for continued pain control, renal failure
[2016-11-21] MEDS: Methadone TAB* 5 MG PO SCH ×2 (12:17→22:52)
[2016-11-21] MEDS: Atenolol TAB* 25 MG PO SCH (12:17)
[2016-11-21] MEDS: traMADol TAB* 50 MG PO PRN (13:32)
[2016-11-21] MEDS: oxyCODONE TAB* 5 MG TAB PO PRN (14:49)
[2016-11-21] MEDS: fentaNYL* 50 MCG/ML 2 ML VIAL (100 MCG VIAL) IV SLOW PU PRN ×2 (16:15→20:45)
[2016-11-21] MEDS: Lidocaine Patch REMOVE* 1 NOTE MISC PATCH OFF SCH (20:49)
[2016-11-22] MEDS: oxyCODONE TAB* 5 MG TAB PO PRN ×2 (00:35→09:46)
[2016-11-22] MEDS: Heparin VIAL(*) 5000 UNITS/ML VIAL (FIVE THOUSAND) SUBCUT SCH ×3 (05:21→20:48)
[2016-11-22] MEDS: Levothyroxine TAB* 75 MCG TAB PO SCH (05:21)
[2016-11-22] MEDS: fentaNYL* 50 MCG/ML 2 ML VIAL (100 MCG VIAL) IV SLOW PU PRN (07:21)
[2016-11-22] MEDS: Lidocaine PATCH 5%* 1 PATCH TRANSDERM SCH (08:21)
[2016-11-22] MEDS: Insulin LISPRO* 1 UNITS UNIT SUBCUT SCH ×4 (08:24→20:47)
[2016-11-22] MEDS: Senna TAB PO SCH ×2 (08:26→20:47)
[2016-11-22] MEDS: Calcitriol CAP* 0.25 MCG PO SCH (08:26)
[2016-11-22] MEDS: amLODIPine TAB* 5 MG PO SCH (08:26)
[2016-11-22] MEDS: Atorvastatin* 10 MG TAB PO SCH (08:27)
[2016-11-22] MEDS: Docusate CAP* 100 MG PO SCH ×2 (08:27→20:47)
[2016-11-22] MEDS: Acetaminophen TAB* 325 MG PO SCH ×3 (08:27→20:47)
[2016-11-22] MEDS: Allopurinol TAB* 100 MG PO SCH (08:27)
[2016-11-22] MEDS: Atenolol TAB* 25 MG PO SCH (08:27)
[2016-11-22] MEDS: traMADol TAB* 50 MG PO PRN (08:34)
[2016-11-22 10:25] LABS: BUN/Creatinine Ratio 28.3 (8-20); Calcium 9.4 mg/dL (8.6-10.3); EGFR Non-African American 18.7 (>60); Potassium 4.9 mmol/L (3.5-5.0)
[2016-11-22] MEDS: Methadone TAB* 5 MG PO SCH (11:42)
--- NOTE | 2016-11-22 13:53 | PN ---
Subjective Date of Service: 11/22/16 Interval History: Patient seen and examined at bedside. Patient c/o of uncontrolled pain limiting her breathing. She states "nothing" really improves her pain. She can pull 1L on IS. Family History: Unchanged from Admission Social History: Unchanged from Admission Past Medical History: Unchanged from Admission Objective Active Medications: Acetaminophen (Tylenol Tab*) 975 mg PO TID [facility] Allopurinol (Zyloprim Tab*) 100 mg PO DAILY [facility] Amlodipine Besylate (Norvasc Tab*) 2.5 mg PO DAILY [facility] Atenolol (Tenormin Tab*) 25 mg PO DAILY [facility] Atorvastatin Calcium (Lipitor*) 10 mg PO DAILY [facility] Calcitriol (Rocaltrol Cap*) 0.25 mcg PO DAILY [facility] Docusate Sodium (Colace Cap*) 100 mg PO BID [facility] Heparin Sodium (Porcine) (Heparin Vial(*)) 5,000 units SUBCUT Q8HR [facility] Levofloxacin/Dextrose (Levaquin 250 Mg Ivpremx(*)) 250 mg in 50 mls @ 50 mls/ hr IVPB Q48H [facility] Insulin Human Lispro (Humalog*) 0 units SUBCUT ACHS [facility] Levothyroxine Sodium (Synthroid Tab*) 75 mcg PO 0600 [facility] Lidocaine (Lidoderm 5% Patch*) 1 patch TRANSDERM 0900 [facility] Morphine Sulfate (Morphine Oral.Soln 10 Mg*) 5 mg PO Q4H PRN Nystatin (Nystatin Top Powder*) 1 applic TOPICAL TID PRN Ondansetron HCl (Zofran Inj*) 4 mg IV Q6H PRN Pharmacy Profile Note (Lidocaine Patch Remove*) 1 note PATCH OFF 2100 [facility] Senna (Senokot Tab*) 1 tab PO BID [facility] 11/22/16 11/22/16 11/22/16 07:21 07:29 07:40 Temperature 97.9 F Pulse Rate 62 Respiratory 24 17 24 Rate Blood Pressure 173/56 (mmHg) O2 Sat by Pulse 95 Oximetry Oxygen Devices in Use Now: Nasal Cannula - 3L Appearance: sitting up in bed. Using accessory muscles to breathe Ears/Nose/Mouth/Throat: NL Teeth, Lips, Gums, Mucous Membranes Moist Neck: NL Appearance and Movements; NL JVP Respiratory: Symmetrical Chest Expansion and Respiratory Effort, - - decreased at bases Cardiovascular: NL Sounds; No Murmurs; No JVD, RRR Abdominal: NL Sounds; No Tenderness; No Distention Skin: No Rash or Ulcers Neurological: Alert and Oriented x 3, NL Muscle Strength and Tone Nutrition: Taking PO's Result Diagrams: 11/21/16 06:03 11/22/16 08:16 Assess/Plan/Problems-Billing Mechanical fall and subsequent rib fxs in a 76 yo F with hx of HTN, HLD, obesity , O2 dependent COPD and DM. - Patient Problems (1) Rib fractures Comment: The patient has posterolateral rib fractures on the left and pain uncontrolled. She became too lethargic over the weekend from IV Morphine. Will start low dose MS Contin with short acting morphine for breakthrough with strict hold parameters. Continue Lidoderm patch, ATC Tylenol and IS. (2) Fever Comment: The patient had a low grade fever on 11/19/16. WBC count and CXR are concerning for PNA related to splinting from her rib fractures. Continue renally dosed Levaquin. (3) Acute kidney injury superimposed on CKD Comment: The patient has baseline stage III CKD with a baseline creatinine around 1.8 who developed acute kidney failure while in the hospital-? secondary to poor oral intake. Her creatinine peaked at 3.34 and has now trended down to 2.5. Continue to trend Cr. (4) COPD (chronic obstructive pulmonary disease) Comment: No signs of exacerbation at this time. She has COPD and chronic hypoxic respiratory failure requiring continous O2 supplementation at 2L. (5) Diabetes Comment: Sugars slightly up in 200s. Continue to hold glipizide and metformin ( pt should not be on this any further as her baseline creatinine is elevated). Increase sliding scale coverage. (6) HTN (hypertension) Comment: BP is under fair control on amlodipine and atenolol. Lisinopril held. (7) DVT prophylaxis Comment: SQ heparin (8) Full code status Status and Disposition: Inpatient for continued pain control, renal failure
[2016-11-22] MEDS: Morphine ORAL.SOLN 10 mg* 2 MG/ML UDC 5 ml PO PRN ×3 (14:06→22:20)
[2016-11-22] MEDS: Levofloxacin 250 MG IVPREMX(*) 250 MG/50 ML BAG IVPB SCH (16:09)
[2016-11-22] MEDS ORDERED: Magnesium CITRATE* 300 ML BTL PO ONE (17:00)
[2016-11-22] MEDS ORDERED: Sodium Phosphate ADULT ENEMA* 118 ml bottle PR ONE (17:00)
[2016-11-22] MEDS: Lidocaine Patch REMOVE* 1 NOTE MISC PATCH OFF SCH (20:51)
[2016-11-23] MEDS: Morphine ORAL.SOLN 10 mg* 2 MG/ML UDC 5 ml PO PRN ×4 (04:42→18:24)
[2016-11-23] MEDS: Levothyroxine TAB* 75 MCG TAB PO SCH (04:42)
[2016-11-23] MEDS: Heparin VIAL(*) 5000 UNITS/ML VIAL (FIVE THOUSAND) SUBCUT SCH ×3 (04:43→21:56)
[2016-11-23 08:30] LABS: Comments Flag Yes; Hematocrit 32 % (35-47); Hemoglobin 10.2 g/dl (12.0-16.0); Mean Corpuscular HGB Conc 32 g/dl (31-36); Mean Corpuscular Hemoglobin 33 pg (27-31); Mean Corpuscular Volume 103 fL (80-97); Red Blood Count 3.08 10^6/ul (4.0-5.4); Red Cell Distribution Width 15 % (10.5-15); White Blood Count 23.4 10^3/ul (3.5-10.8)
[2016-11-23 08:31] LABS: Add Diff/Slide Review? Slide Review Added
[2016-11-23 08:41] LABS: BUN/Creatinine Ratio 35.9 (8-20); Blood Urea Nitrogen 80 mg/dL (6-24); CO2 Carbon Dioxide 18 mmol/L (22-32); Calcium 9.4 mg/dL (8.6-10.3); Chloride 106 mmol/L (101-111); EGFR African American 27.6 (>60); EGFR Non-African American 21.4 (>60); Glucose 166 mg/dL (70-100); Sodium 134 mmol/L (133-145)
[2016-11-23] MEDS: Atenolol TAB* 25 MG PO SCH (08:49)
[2016-11-23 09:06] LABS: Anion Gap 10 mmol/L (2-11)
[2016-11-23] MEDS: Insulin LISPRO* 1 UNITS UNIT SUBCUT SCH ×4 (09:24→21:54)
[2016-11-23] MEDS: amLODIPine TAB* 5 MG PO SCH (09:25)
[2016-11-23] MEDS: Senna TAB PO SCH ×2 (09:25→21:54)
[2016-11-23] MEDS: Calcitriol CAP* 0.25 MCG PO SCH (09:25)
[2016-11-23] MEDS: Morphine TAB Extended Release (*) 15 MG TAB.ER PO SCH ×2 (09:25→20:24)
[2016-11-23] MEDS: Docusate CAP* 100 MG PO SCH ×2 (09:26→21:55)
[2016-11-23] MEDS: Atorvastatin* 10 MG TAB PO SCH (09:26)
[2016-11-23] MEDS: Acetaminophen TAB* 325 MG PO SCH ×3 (09:26→21:54)
[2016-11-23] MEDS: Lidocaine PATCH 5%* 1 PATCH TRANSDERM SCH (09:26)
[2016-11-23] MEDS: Allopurinol TAB* 100 MG PO SCH (09:26)
[2016-11-23 10:06] LABS: Mean Platelet Volume 9 um3 (7.4-10.4)
--- NOTE | 2016-11-23 12:59 | PN ---
Subjective Date of Service: 11/23/16 Interval History: Patient seen and examined at bedside. Patient states her pain has improved. She can pull 1.5L on IS. She is down to 3L. She still has pain with movement. Had a bowel movement yesterday. Family History: Unchanged from Admission Social History: Unchanged from Admission Past Medical History: Unchanged from Admission Objective Active Medications: Acetaminophen (Tylenol Tab*) 975 mg PO TID [facility] Allopurinol (Zyloprim Tab*) 100 mg PO DAILY [facility] Amlodipine Besylate (Norvasc Tab*) 2.5 mg PO DAILY [facility] Atenolol (Tenormin Tab*) 25 mg PO DAILY [facility] Atorvastatin Calcium (Lipitor*) 10 mg PO DAILY [facility] Calcitriol (Rocaltrol Cap*) 0.25 mcg PO DAILY [facility] Dextrose (D50w Syringe 50 Ml*) 12.5 gm IV PUSH .FOR FS < 60 - SS PRN Docusate Sodium (Colace Cap*) 100 mg PO BID [facility] Heparin Sodium (Porcine) (Heparin Vial(*)) 5,000 units SUBCUT Q8HR [facility] Levofloxacin/Dextrose (Levaquin 250 Mg Ivpremx(*)) 250 mg in 50 mls @ 50 mls/ hr IVPB Q48H [facility] Insulin Human Lispro (Humalog*) 0 units SUBCUT ACHS [facility] Levothyroxine Sodium (Synthroid Tab*) 75 mcg PO 0600 [facility] Lidocaine (Lidoderm 5% Patch*) 1 patch TRANSDERM 0900 [facility] Morphine Sulfate (Ms Contin(*)) 15 mg PO Q12H [facility] Morphine Sulfate (Morphine Oral.Soln 10 Mg*) 10 mg PO Q4H PRN Nystatin (Nystatin Top Powder*) 1 applic TOPICAL TID PRN Ondansetron HCl (Zofran Inj*) 4 mg IV Q6H PRN Pharmacy Profile Note (Lidocaine Patch Remove*) 1 note PATCH OFF 2100 [facility] Senna (Senokot Tab*) 1 tab PO BID [facility] 11/23/16 11/23/16 11/23/16 07:39 08:00 09:25 Temperature 97.9 F Pulse Rate 57 Respiratory 18 18 20 Rate Blood Pressure 141/48 (mmHg) O2 Sat by Pulse 99 99 Oximetry Oxygen Devices in Use Now: Nasal Cannula - 3L Appearance: sitting up in bed, NAD Eyes: No Scleral Icterus, PERRLA Ears/Nose/Mouth/Throat: NL Teeth, Lips, Gums, Mucous Membranes Moist Neck: NL Appearance and Movements; NL JVP Respiratory: Symmetrical Chest Expansion and Respiratory Effort, Clear to Auscultation Cardiovascular: NL Sounds; No Murmurs; No JVD, RRR Abdominal: NL Sounds; No Tenderness; No Distention Skin: No Rash or Ulcers Neurological: Alert and Oriented x 3, NL Muscle Strength and Tone Lines/Tubes/Other Access: Clean, Dry and Intact Peripheral IV Result Diagrams: 11/23/16 07:38 11/23/16 09:38 Assess/Plan/Problems-Billing Mechanical fall and subsequent rib fxs in a 76 yo F with hx of HTN, HLD, obesity , O2 dependent COPD and DM. - Patient Problems (1) Rib fractures Comment: Pain improved with MS Contin and PO PRN Morphine. Will increase the dose to 10mg. She continues to pull 1.5L on IS. Continue Lidoderm patch and ATC Tylenol. Wean oxygen as tolerated. Completing a 5 day course of Levaquin for empiric tx of PNA given severity of rib fractures and fever on 11/19. (2) Fever Comment: The patient had a low grade fever on 11/19/16. WBC count and CXR are concerning for PNA related to splinting from her rib fractures. Continue renally dosed Levaquin for empiric treatment. (3) Acute kidney injury superimposed on CKD Comment: The patient has baseline stage III CKD with a baseline creatinine around 1.8 who developed acute kidney failure while in the hospital-? secondary to poor oral intake. Her creatinine peaked at 3.34 and has now trended down to 2.2. Continue to trend Cr. (4) COPD (chronic obstructive pulmonary disease) Comment: No signs of exacerbation at this time. She has COPD and chronic hypoxic respiratory failure requiring continous O2 supplementation at 2L. (5) Diabetes Comment: Sugars slightly up in 200s. Continue to hold glipizide and metformin ( pt should not be on this any further as her baseline creatinine is elevated). Increase sliding scale coverage. (6) HTN (hypertension) Comment: BP is under fair control on amlodipine and atenolol. Lisinopril held. (7) DVT prophylaxis Comment: SQ heparin (8) Full code status Status and Disposition: Inpatient for continued pain control, renal failure. 2 person assist so will need short term rehab. DC planners aware.
[2016-11-23] MEDS: Lidocaine Patch REMOVE* 1 NOTE MISC PATCH OFF SCH (21:57)
[2016-11-23] MEDS ORDERED: Famotidine TAB* 20 MG PO ONE (22:11)
[2016-11-23] MEDS: Nystatin TOP POWDER* 15 GM BTL TOPICAL PRN (22:25)
[2016-11-24 05:47] LABS: BUN/Creatinine Ratio 41.1 (8-20); Calcium 9.8 mg/dL (8.6-10.3); EGFR African American 32.7 (>60); EGFR Non-African American 25.5 (>60); Potassium 4.5 mmol/L (3.5-5.0)
[2016-11-24] MEDS: Levothyroxine TAB* 75 MCG TAB PO SCH (06:36)
[2016-11-24] MEDS: Heparin VIAL(*) 5000 UNITS/ML VIAL (FIVE THOUSAND) SUBCUT SCH ×3 (06:36→22:10)
[2016-11-24] MEDS: Docusate CAP* 100 MG PO SCH ×2 (07:58→20:49)
[2016-11-24] MEDS: Acetaminophen TAB* 325 MG PO SCH ×3 (07:58→20:49)
[2016-11-24] MEDS: Atorvastatin* 10 MG TAB PO SCH (07:58)
[2016-11-24] MEDS: Morphine TAB Extended Release (*) 15 MG TAB.ER PO SCH (07:58)
[2016-11-24] MEDS: Senna TAB PO SCH ×2 (07:59→20:50)
[2016-11-24] MEDS: Allopurinol TAB* 100 MG PO SCH (07:59)
[2016-11-24] MEDS: amLODIPine TAB* 5 MG PO SCH (07:59)
[2016-11-24] MEDS: Calcitriol CAP* 0.25 MCG PO SCH (07:59)
[2016-11-24] MEDS: Atenolol TAB* 25 MG PO SCH (07:59)
[2016-11-24] MEDS: Lidocaine PATCH 5%* 1 PATCH TRANSDERM SCH (08:02)
[2016-11-24] MEDS ORDERED: Famotidine TAB* 20 MG PO PRN (09:00)
[2016-11-24] MEDS: Insulin LISPRO* 1 UNITS UNIT SUBCUT SCH ×4 (09:47→21:31)
[2016-11-24 11:07] LABS: Hematocrit 30 % (35-47); Hemoglobin 9.9 g/dl (12.0-16.0); Mean Corpuscular HGB Conc 33 g/dl (31-36); Mean Corpuscular Hemoglobin 33 pg (27-31); Mean Corpuscular Volume 102 fL (80-97); Mean Platelet Volume 8 um3 (7.4-10.4); Red Blood Count 2.98 10^6/ul (4.0-5.4); Red Cell Distribution Width 15 % (10.5-15); White Blood Count 11.8 10^3/ul (3.5-10.8)
[2016-11-24] MEDS ORDERED: Morphine ORAL.SOLN 10 mg* 2 MG/ML UDC 5 ml PO PRN (11:09)
[2016-11-24 11:12] LABS: Add Diff/Slide Review? Slide Review Added; Comments Flag Yes
[2016-11-24] MEDS: Lisinopril TAB* 10 MG PO SCH (13:17)
--- NOTE | 2016-11-24 14:13 | PN ---
Subjective Date of Service: 11/24/16 Interval History: Patient seen and examined at bedside. Patient reports pain controlled. Patient making progress with PT. Is asking for the kaba to be removed. Family History: Unchanged from Admission Social History: Unchanged from Admission Past Medical History: Unchanged from Admission Objective Active Medications: Acetaminophen (Tylenol Tab*) 975 mg PO TID [facility] Allopurinol (Zyloprim Tab*) 100 mg PO DAILY [facility] Amlodipine Besylate (Norvasc Tab*) 2.5 mg PO DAILY [facility] Atenolol (Tenormin Tab*) 25 mg PO DAILY [facility] Atorvastatin Calcium (Lipitor*) 10 mg PO DAILY [facility] Calcitriol (Rocaltrol Cap*) 0.25 mcg PO DAILY [facility] Dextrose (D50w Syringe 50 Ml*) 12.5 gm IV PUSH .FOR FS < 60 - SS PRN Docusate Sodium (Colace Cap*) 100 mg PO BID [facility] Famotidine (Pepcid Tab*) 20 mg PO DAILY [facility] Heparin Sodium (Porcine) (Heparin Vial(*)) 5,000 units SUBCUT Q8HR [facility] Levofloxacin/Dextrose (Levaquin 250 Mg Ivpremx(*)) 250 mg in 50 mls @ 50 mls/ hr IVPB Q48H [facility] Insulin Human Lispro (Humalog*) 0 units SUBCUT ACHS [facility] Levothyroxine Sodium (Synthroid Tab*) 75 mcg PO 0600 [facility] Lidocaine (Lidoderm 5% Patch*) 1 patch TRANSDERM 0900 [facility] Lisinopril (Prinivil Tab*) 20 mg PO DAILY [facility] Morphine Sulfate (Ms Contin(*)) 15 mg PO Q12H [facility] Morphine Sulfate (Morphine Oral.Soln 10 Mg*) 5 mg PO Q4H PRN Nystatin (Nystatin Top Powder*) 1 applic TOPICAL TID PRN Ondansetron HCl (Zofran Inj*) 4 mg IV Q6H PRN Pharmacy Profile Note (Lidocaine Patch Remove*) 1 note PATCH OFF 2100 [facility] Senna (Senokot Tab*) 1 tab PO BID [facility] 11/24/16 13:19 Temperature 97.4 F Pulse Rate 50 Respiratory 20 Rate Blood Pressure 165/48 (mmHg) O2 Sat by Pulse 96 Oximetry Oxygen Devices in Use Now: Nasal Cannula - 3L Appearance: sitting up in bed, NAD Eyes: No Scleral Icterus, PERRLA Ears/Nose/Mouth/Throat: NL Teeth, Lips, Gums Neck: NL Appearance and Movements; NL JVP Respiratory: Symmetrical Chest Expansion and Respiratory Effort, Clear to Auscultation Cardiovascular: NL Sounds; No Murmurs; No JVD, RRR Abdominal: NL Sounds; No Tenderness; No Distention Extremities: No Edema Skin: No Rash or Ulcers Neurological: Alert and Oriented x 3, NL Muscle Strength and Tone Lines/Tubes/Other Access: Clean, Dry and Intact Peripheral IV Result Diagrams: 11/24/16 05:20 11/24/16 05:25 Assess/Plan/Problems-Billing Mechanical fall and subsequent rib fxs in a 76 yo F with hx of HTN, HLD, obesity , O2 dependent COPD and DM. - Patient Problems (1) Rib fractures Comment: Pain improved with MS Contin and PO PRN Morphine. Continue 5mg PRN. She continues to pull 1.5L on IS. Continue Lidoderm patch and ATC Tylenol. Oxygen down to 2L (baseline). Completing a 5 day course of Levaquin for empiric tx of PNA given severity of rib fractures and fever on 11/19. (2) Fever Comment: The patient had a low grade fever on 11/19/16. WBC trended down then was 23k yesterday. Today it is back to normal. Continue renally dosed Lervaquin for empiric treatment of PNA. (3) Acute kidney injury superimposed on CKD Comment: The patient has baseline stage III CKD with a baseline creatinine around 1.8 who developed acute kidney failure while in the hospital-? secondary to poor oral intake. Her creatinine peaked at 3.34 and is now close to baseline. Recheck in AM. (4) COPD (chronic obstructive pulmonary disease) Comment: No signs of exacerbation at this time. She has COPD and chronic hypoxic respiratory failure requiring continous O2 supplementation at 2L. (5) Diabetes Comment: Sugars slightly up in 200s. Restart Lantus at lower dose. Hold glipzide and metformin (should not be restarted due to renal function). Continue Lispro sliding scale. (6) HTN (hypertension) Comment: BP is under fair control on amlodipine and atenolol. 1/2 Lisinopril restarted this morning. (7) DVT prophylaxis Comment: SQ heparin (8) Full code status Status and Disposition: Inpatient for continued pain control, renal failure. 2 person assist so will need short term rehab. DC planners aware.
[2016-11-24] MEDS ORDERED: Insulin GLARGINE(*) 1 UNITS UNIT SUBCUT SCH ×2 (15:00→21:00)
[2016-11-24] MEDS: Levofloxacin 250 MG IVPREMX(*) 250 MG/50 ML BAG IVPB SCH (16:31)
[2016-11-24] MEDS ORDERED: Haloperidol INJ IV/IM* 5 MG/ML AMP ONE (20:43)
[2016-11-24] MEDS ORDERED: oxyCODONE TAB* 5 MG TAB PO PRN (21:00)
[2016-11-24] MEDS ORDERED: Haloperidol INJ IV/IM* 5 MG/ML AMP IV SLOW PU ONE (22:00)
[2016-11-24] MEDS: Lidocaine Patch REMOVE* 1 NOTE MISC PATCH OFF SCH (22:10)
[2016-11-25] MEDS ORDERED: Haloperidol INJ IV/IM* 5 MG/ML AMP IV ONE (04:20)
[2016-11-25] MEDS: Levothyroxine TAB* 75 MCG TAB PO SCH (04:47)
[2016-11-25] MEDS: Heparin VIAL(*) 5000 UNITS/ML VIAL (FIVE THOUSAND) SUBCUT SCH ×3 (05:09→20:48)
[2016-11-25 06:07] LABS: Hematocrit 31 % (35-47); Hemoglobin 9.9 g/dl (12.0-16.0); Mean Corpuscular HGB Conc 32 g/dl (31-36); Mean Corpuscular Hemoglobin 33 pg (27-31); Mean Corpuscular Volume 101 fL (80-97); Mean Platelet Volume 8 um3 (7.4-10.4); Red Blood Count 3.03 10^6/ul (4.0-5.4); Red Cell Distribution Width 15 % (10.5-15); White Blood Count 12.4 10^3/ul (3.5-10.8)
[2016-11-25 06:19] LABS: Add Diff/Slide Review? Slide Review Added; Comments Flag Yes
[2016-11-25 06:22] LABS: BUN/Creatinine Ratio 43.3 (8-20); EGFR African American 33.8 (>60); EGFR Non-African American 26.2 (>60); Potassium 4.5 mmol/L (3.5-5.0)
[2016-11-25] MEDS: Acetaminophen TAB* 325 MG PO SCH ×3 (08:50→20:48)
[2016-11-25] MEDS: Lisinopril TAB* 10 MG PO SCH (08:52)
[2016-11-25] MEDS: Atorvastatin* 10 MG TAB PO SCH (08:53)
[2016-11-25] MEDS: Atenolol TAB* 25 MG PO SCH (08:53)
[2016-11-25] MEDS: Senna TAB PO SCH ×2 (08:54→20:48)
[2016-11-25] MEDS: amLODIPine TAB* 5 MG PO SCH (08:55)
[2016-11-25] MEDS: Docusate CAP* 100 MG PO SCH ×2 (08:55→20:48)
[2016-11-25] MEDS: Insulin LISPRO* 1 UNITS UNIT SUBCUT SCH ×4 (08:57→20:48)
[2016-11-25] MEDS: Lidocaine PATCH 5%* 1 PATCH TRANSDERM SCH (08:58)
[2016-11-25] MEDS: Allopurinol TAB* 100 MG PO SCH (12:57)
[2016-11-25] MEDS: Calcitriol CAP* 0.25 MCG PO SCH (12:58)
--- NOTE | 2016-11-25 15:10 | ED ---
Leatha Mancini Alfonso scribed for Dario Schulz MD on 11/17/16 at 1554 . Adult Trauma - HPI Summary HPI Summary: This patient is a 76 year old F BIBA to [facility] accompanied by family s/p a fall at 0945 today. She fell in the bathroom while pulling up her pants. The patient rates the pain 10/10 in severity. Symptoms aggravated by deep breaths. Symptoms alleviated by nothing. Patient reports left rib pain, and left shoulder pain. Patient denies LOC, head trauma, and neck pain. She is on NC O2 at home and currently. PMHx includes DM. - History of Current Complaint Chief Complaint: EDGeneral Stated Complaint: LT RIB PAIN Time Seen by Provider: 11/17/16 14:42 Hx Obtained From: Patient Mechanism of Injury: Fall Loss of Consciousness: no loss of consciousness Onset/Duration: Started Hours Ago - 0945 today, Traumatic, Still Present Onset of Pain: Post Accident Current Severity: Severe Pain Intensity: 10 Pain Scale Used: 0-10 Numeric Aggravating Factor(s): Deep Breaths Alleviating Factor(s): Nothing Associated Signs & Symptoms: Positive: Other: - left rib pain, and left shoulder pain. Patient denies LOC, head trauma, and neck pain. - Allergy/Home Medications Allergies/Adverse Reactions: Allergies Allergy/AdvReac Type Severity Reaction Status Date / Time Cephalexin [From Keflex] Allergy Unknown Verified 11/17/16 14:57 Reaction Details CI Pigment Blue 63 Allergy Unknown Verified 11/17/16 14:57 [From Cymbalta] Reaction Details Duloxetine [From Cymbalta] Allergy Unknown Verified 11/17/16 14:57 Reaction Details Penicillins Allergy Unknown Verified 11/17/16 14:57 Reaction Details Sulfamethoxazole Allergy Unknown Verified 11/17/16 14:57 w/Trimethoprim Reaction [From Bactrim] Details grantrisin Allergy Unknown Uncoded 11/17/16 14:57 Reaction Details PMH/Surg Hx/FS Hx/Imm Hx Endocrine/Hematology History: Reports: Hx Diabetes, Hx Thyroid Disease Sensory History: Denies: Hx Deafness Opthamlomology History: Denies: Hx Legally Blind EENT History: Denies: Hx Deafness Infectious Disease History: No Infectious Disease History: Denies: Traveled Outside the [place] in Last 30 Days - Family History Known Family History: Positive: Diabetes - Social History Alcohol Use: None Substance Use Type: Reports: None Smoking Status (MU): Never Smoked Tobacco Review of Systems Negative: Fever, Chills Negative: Erythema Negative: Sore Throat Negative: Chest Pain Negative: Shortness Of Breath, Cough Negative: Abdominal Pain, Diarrhea, Nausea Negative: dysuria, hematuria Positive: Other - Fall, left rip pain, left shoulder pain; negative head trauma , neck pain. Negative: Edema Negative: Rash Neurological: Other - Negative dizziness and LOC All Other Systems Reviewed And Are Negative: Yes Physical Exam Triage Information Reviewed: Yes Vital Signs On Initial Exam: Initial Vitals BP 179/53 11/17/16 14:33 Vital Signs Reviewed: Yes Appearance: Positive: Well-Appearing, No Pain Distress Skin: Positive: Warm, Dry Head/Face: Positive: Normal Head/Face Inspection Eyes: Positive: Conjunctiva Clear Neck: Positive: Other: - Musculoskeletal ROM normal neck. (-) JVD, (-) Stridor, (-) Tracheal deviation, (-) Cervical adenopathy Respiratory/Lung Sounds: Positive: Other - Diminished breath sounds. Effort normal. (-) Respiratory distress, (-) Wheezes, (-) Rales Cardiovascular: Positive: RRR, Other - Heart sounds normal; Intact distal pulses ; The pedal pulses are 2+ and symmetric. Radial pulses are 2+ and symmetric. (- ) Murmur Abdomen Description: Positive: Nontender, Soft, Other: - No rebound. Negative: Distended, Guarding Musculoskeletal: Positive: Other - Ecchymosis at the left lateral 8th rib which is tender to palpation. Left shoulder pain with ROM.. Negative: Edema Left, Edema Right Neurological: Positive: Alert, Oriented to Person Place, Time Psychiatric: Positive: Affect/Mood Appropriate - Shelly Coma Scale Coma Scale Total: 15 Diagnostics - Vital Signs Vital Signs Temp Pulse Resp BP Pulse Ox 11/17/16 14:51 98.2 F 56 20 179/53 93 11/17/16 14:35 57 87 11/17/16 14:33 179/53 - Laboratory Result Diagrams: 11/17/16 21:34 11/17/16 21:34 Lab Statement: Any lab studies that have been ordered have been reviewed, and results considered in the medical decision making process. - Radiology Ribs w/ chest X-ray Radiology Interpretation Completed By: Radiologist - NO DISPLACED RIB FRACTURE OR PNEUMOTHORAX. CLINICALLY. BIBASILAR ATELECTASIS VERSUS CONSOLIDATION. ED physician has reviewed this radiology report and agrees. Shoulder X-Ray Radiology Interpretation Completed By: Radiologist - 1. 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 2. Less marked osteoarthritis at the glenohumeral joint. 3. Stigmata of calcific tendinopathy. 4. Negative for fracture. ED physician has reviewed this radiology report and agrees. - CT Abd/Chest CT Interpretation Completed By: Radiologist - Pending official interpretation from radiologist. See [facility]. Re-Evaluation - Re-Evaluation First Eval Re-Evaluation Time: 17:45 Comment: No relief of pain after morphine Second Eval Re-Evaluation Time: 21:20 Comment: Attempted to ambulate the patient and she is in increasing pain. The ecchymosis has spread, now involving 5 ribs and is about 8 inches in diameter. She appears to be SOB. Adult Trauma Course/Dx - Course Assessment/Plan: This patient is a 76 year old [facility] s/p a fall at 0945 today. She fell in the bathroom while pulling up her pants. The patient rates the pain 10/10 in severity. Symptoms aggravated by deep breaths. Symptoms alleviated by nothing. Patient reports left rib pain, and left shoulder pain. Patient denies LOC, head trauma, and neck pain. She is on [place] O2 at home and currently. PMHx includes DM. Ribs w/ chest X-ray reveals NO DISPLACED RIB FRACTURE OR PNEUMOTHORAX. CLINICALLY. BIBASILAR ATELECTASIS VERSUS CONSOLIDATION. ED physician has reviewed this radiology report and agrees. Shoulder X-ray reveals 1. 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 2. Less marked osteoarthritis at the glenohumeral joint.3. Stigmata of calcific tendinopathy. 4. Negative for fracture. ED physician has reviewed this radiology report and agrees. CT abd/ chest Pending official interpretation from radiologist. Patient is signed out to Dr. Sims, pending disposition, awaiting CT. - Diagnoses Provider Diagnoses: Suspected fracture of rib Discharge - Discharge Plan Condition: Stable Disposition: OTHER Discharge Disposition Comment: Patient is signed out to Dr. Sims, pending disposition, awaiting CT. The documentation as recorded by the Leatha poole,Ronal accurately reflects the service I personally performed and the decisions made by me, Dario Schulz MD.
--- NOTE | 2016-11-25 16:30 | PN ---
Subjective Date of Service: 11/25/16 Interval History: Patient seen and examined at bedside. Patient was very confused and agitated overnight. She received Haldol x2 overnight. Throughout the course of the day she has improved. Denies SOB and still on 2L which is baseline. Family History: Unchanged from Admission Social History: Unchanged from Admission Past Medical History: Unchanged from Admission Objective Active Medications: Acetaminophen (Tylenol Tab*) 975 mg PO TID [facility] Allopurinol (Zyloprim Tab*) 100 mg PO DAILY [facility] Amlodipine Besylate (Norvasc Tab*) 2.5 mg PO DAILY [facility] Atenolol (Tenormin Tab*) 25 mg PO DAILY [facility] Atorvastatin Calcium (Lipitor*) 10 mg PO DAILY [facility] Calcitriol (Rocaltrol Cap*) 0.25 mcg PO DAILY [facility] Docusate Sodium (Colace Cap*) 100 mg PO BID [facility] Famotidine (Pepcid Tab*) 20 mg PO DAILY PRN Heparin Sodium (Porcine) (Heparin Vial(*)) 5,000 units SUBCUT Q8HR [facility] Levofloxacin/Dextrose (Levaquin 250 Mg Ivpremx(*)) 250 mg in 50 mls @ 50 mls/ hr IVPB Q48H [facility] Insulin Glargine (Lantus(*)) 7 units SUBCUT BEDTIME [facility] Insulin Human Lispro (Humalog*) 0 units SUBCUT ACHS [facility] Levothyroxine Sodium (Synthroid Tab*) 75 mcg PO 0600 [facility] Lidocaine (Lidoderm 5% Patch*) 1 patch TRANSDERM 0900 [facility] Lisinopril (Prinivil Tab*) 20 mg PO DAILY [facility] Nystatin (Nystatin Top Powder*) 1 applic TOPICAL TID PRN Ondansetron HCl (Zofran Inj*) 4 mg IV Q6H PRN Oxycodone HCl (Roxycodone Tab*) 5 mg PO Q4H PRN Pharmacy Profile Note (Lidocaine Patch Remove*) 1 note PATCH OFF 2100 [facility] Quetiapine Fumarate (Seroquel Tab*) 12.5 mg PO BEDTIME PRN Senna (Senokot Tab*) 1 tab PO BID [facility] 11/25/16 11/25/16 08:00 11:47 Temperature 97.6 F 98.1 F Pulse Rate 70 60 Respiratory 20 18 Rate Blood Pressure 131/79 156/51 (mmHg) O2 Sat by Pulse 98 97 Oximetry Oxygen Devices in Use Now: Nasal Cannula - 3L Appearance: sitting up in chair, NAD Eyes: No Scleral Icterus, PERRLA Ears/Nose/Mouth/Throat: NL Teeth, Lips, Gums, Mucous Membranes Moist Neck: NL Appearance and Movements; NL JVP Respiratory: Symmetrical Chest Expansion and Respiratory Effort, Clear to Auscultation Cardiovascular: NL Sounds; No Murmurs; No JVD Abdominal: NL Sounds; No Tenderness; No Distention Extremities: No Edema Skin: No Rash or Ulcers Neurological: NL Muscle Strength and Tone, - - oriented to self only Lines/Tubes/Other Access: Clean, Dry and Intact Peripheral IV Result Diagrams: 11/25/16 05:23 11/25/16 05:23 Assess/Plan/Problems-Billing Mechanical fall and subsequent rib fxs in a 76 yo F with hx of HTN, HLD, obesity , O2 dependent COPD and DM. - Patient Problems (1) Delirium Comment: Multifactorial. This is a combination of her baseline dementia, morphine, and being in the hospital. Will start low dose seroquel at bedtime to help. (2) Rib fractures Comment: Due to confusion MS Contin d/c yesterday and PRN low dose oxycodone started. She continues to pull 1.5L on IS. Continue Lidoderm patch and ATC Tylenol. Oxygen down to 2L (baseline). Will complete a 5 day course of Levaquin today. (3) Fever Comment: The patient had a low grade fever on 11/19/16. WBC trended down then was 23k yesterday. Today it is back to normal. Continue renally dosed Lervaquin for empiric treatment of PNA. (4) Acute kidney injury superimposed on CKD Comment: Creatinine is now at baseline (1.8). Low dose Lisinopril started. (5) COPD (chronic obstructive pulmonary disease) Comment: No signs of exacerbation at this time. She has COPD and chronic hypoxic respiratory failure requiring continous O2 supplementation at 2L. (6) Diabetes Comment: Sugars slightly up in 200s. Increase Lantus to 15 units at bedtime.. Hold glipzide and metformin (should not be restarted due to renal function). Continue Lispro sliding scale. (7) HTN (hypertension) Comment: BP is under fair control on amlodipine and atenolol. Increase Lisinopril to home dose. (8) DVT prophylaxis Comment: SQ heparin (9) Full code status Status and Disposition: Inpatient for continued pain control, renal failure. When delirium resolves plan for STR. Possibly [facility] on Monday.
[2016-11-25] MEDS ORDERED: oxyCODONE TAB* 5 MG TAB PO PRN (16:35)
[2016-11-25] MEDS: Lidocaine Patch REMOVE* 1 NOTE MISC PATCH OFF SCH (20:56)
[2016-11-25] MEDS ORDERED: Insulin GLARGINE(*) 1 UNITS UNIT SUBCUT SCH (21:00)
[2016-11-26] MEDS: QUEtiapine TAB* 25 MG PO PRN ×2 (00:44→22:55)
[2016-11-26] MEDS: Heparin VIAL(*) 5000 UNITS/ML VIAL (FIVE THOUSAND) SUBCUT SCH ×3 (05:32→21:58)
[2016-11-26] MEDS: Levothyroxine TAB* 75 MCG TAB PO SCH (05:32)
[2016-11-26] MEDS: Nystatin TOP POWDER* 15 GM BTL TOPICAL PRN (05:36)
[2016-11-26] MEDS: Lidocaine PATCH 5%* 1 PATCH TRANSDERM SCH (09:02)
[2016-11-26] MEDS: Acetaminophen TAB* 325 MG PO SCH ×3 (09:03→22:02)
[2016-11-26] MEDS: Atenolol TAB* 50 MG PO SCH (09:03)
[2016-11-26] MEDS: Senna TAB PO SCH ×2 (09:03→22:02)
[2016-11-26] MEDS: Docusate CAP* 100 MG PO SCH ×2 (09:04→22:02)
[2016-11-26] MEDS: Atorvastatin* 10 MG TAB PO SCH (09:05)
[2016-11-26] MEDS: Lisinopril TAB* 10 MG PO SCH (09:05)
[2016-11-26] MEDS: amLODIPine TAB* 5 MG PO SCH (09:05)
[2016-11-26] MEDS: Insulin LISPRO* 1 UNITS UNIT SUBCUT SCH ×4 (09:06→21:59)
[2016-11-26] MEDS: Allopurinol TAB* 100 MG PO SCH (09:06)
[2016-11-26] MEDS: Calcitriol CAP* 0.25 MCG PO SCH (09:07)
[2016-11-26] MEDS ORDERED: Levofloxacin TAB* 500 MG PO SCH (13:00)
[2016-11-26] MEDS ORDERED: Levofloxacin TAB* 250 MG PO SCH (13:00)
--- NOTE | 2016-11-26 13:35 | PN ---
Subjective Date of Service: 11/26/16 Interval History: No overnight events; slept better with qhs seroquel and did not receive any additional medications overnight. She reports ongoing pain today in her left ribs, but has been using the incentive spirometer. Denies shortness of breath, cough, fevers, diarrhea, constipation, nausea, vomiting. Remaining ROS negative. Family History: Unchanged from Admission Social History: Unchanged from Admission Past Medical History: Unchanged from Admission Objective Active Medications: Acetaminophen (Tylenol Tab*) 975 mg PO TID [facility] Last Admin: 11/26/16 12:53 Dose: 975 mg Allopurinol (Zyloprim Tab*) 100 mg PO DAILY [facility] Last Admin: 11/26/16 09:06 Dose: 100 mg Amlodipine Besylate (Norvasc Tab*) 2.5 mg PO DAILY [facility] Last Admin: 11/26/16 09:05 Dose: 2.5 mg Atenolol (Tenormin Tab*) 50 mg PO DAILY [facility] Last Admin: 11/26/16 09:03 Dose: 50 mg Atorvastatin Calcium (Lipitor*) 10 mg PO DAILY [facility] Last Admin: 11/26/16 09:05 Dose: 10 mg Calcitriol (Rocaltrol Cap*) 0.25 mcg PO DAILY [facility] Last Admin: 11/26/16 09:07 Dose: 0.25 mcg Dextrose (D50w Syringe 50 Ml*) 12.5 gm IV PUSH .FOR FS < 60 - SS PRN PRN Reason: FS < 60 Docusate Sodium (Colace Cap*) 100 mg PO BID [facility] Last Admin: 11/26/16 09:04 Dose: 100 mg Famotidine (Pepcid Tab*) 20 mg PO DAILY PRN PRN Reason: HEARTBURN Heparin Sodium (Porcine) (Heparin Vial(*)) 5,000 units SUBCUT Q8HR [facility] Last Admin: 11/26/16 12:52 Dose: 5,000 units Insulin Glargine (Lantus(*)) 15 units SUBCUT BEDTIME [facility] Last Admin: 11/25/16 20:49 Dose: 15 units Insulin Human Lispro (Humalog*) 0 units SUBCUT ACHS [facility] PRN Reason: Protocol Last Admin: 11/26/16 12:43 Dose: 2 units Levofloxacin (Levaquin Tab*) 250 mg PO Q24H [facility] Last Admin: 11/26/16 12:49 Dose: 250 mg Levothyroxine Sodium (Synthroid Tab*) 75 mcg PO 06 [facility] Last Admin: 11/26/16 05:32 Dose: 75 mcg Lidocaine (Lidoderm 5% Patch*) 1 patch TRANSDERM 899 [facility] Last Admin: 11/26/16 09:02 Dose: 1 patch Lisinopril (Prinivil Tab*) 20 mg PO DAILY [facility] Last Admin: 11/26/16 09:05 Dose: 20 mg Nystatin (Nystatin Top Powder*) 1 applic TOPICAL TID PRN PRN Reason: RASH Last Admin: 11/26/16 05:36 Dose: 1 applic Ondansetron HCl (Zofran Inj*) 4 mg IV Q6H PRN PRN Reason: NAUSEA Last Admin: 11/21/16 09:01 Dose: 4 mg Oxycodone HCl (Roxycodone Tab*) 2.5 mg PO Q4H PRN PRN Reason: PAIN Pharmacy Profile Note (Lidocaine Patch Remove*) 1 note PATCH OFF 2099 [facility] Last Admin: 11/25/16 20:56 Dose: 1 note Quetiapine Fumarate (Seroquel Tab*) 12.5 mg PO BEDTIME PRN PRN Reason: AGITATION Last Admin: 11/26/16 00:44 Dose: 12.5 mg Senna (Senokot Tab*) 1 tab PO BID [facility] Last Admin: 11/26/16 09:03 Dose: 1 tab Vital Signs 11/25/16 11/25/16 11/25/16 15:34 20:00 23:26 Temperature 97.7 F 98.2 F Pulse Rate 75 65 Respiratory 22 20 24 Rate Blood Pressure 178/55 (mmHg) O2 Sat by Pulse 98 99 Oximetry 11/26/16 11/26/16 08:00 08:18 Temperature 98.1 F Pulse Rate 61 Respiratory 18 17 Rate Blood Pressure 177/50 (mmHg) O2 Sat by Pulse 96 96 Oximetry Oxygen Devices in Use Now: Nasal Cannula - 3L Appearance: alert, no distress, distracted, poor attention Eyes: No Scleral Icterus, PERRLA Ears/Nose/Mouth/Throat: NL Teeth, Lips, Gums, Clear Oropharnyx Neck: NL Appearance and Movements; NL JVP, Trachea Midline Respiratory: Symmetrical Chest Expansion and Respiratory Effort, Clear to Auscultation Cardiovascular: NL Sounds; No Murmurs; No JVD, RRR Abdominal: NL Sounds; No Tenderness; No Distention, No Hepatosplenomegaly Lymphatic: No Cervical Adenopathy Extremities: No Edema Skin: - - echymoses over lower back and left side Result Diagrams: 11/25/16 05:23 11/25/16 05:23 Assess/Plan/Problems-Billing Mechanical fall and subsequent rib fxs in a 76 yo F with hx of HTN, HLD, obesity , O2 dependent COPD and DM. 1. Delirium Agree, likely multifactorial related to narcotics, hospitalization, and pain on underlying dementia. Improved today after sleep overnight and seroquel. 2. Rib fractures Pain now controlled, continue incentive spirometry. Continue pain control with standing tylenol and PRN oxycodone. Yesterday, levaquin was started empirically in the setting of poor inspiratory effort and fever. Day 2 of 5 of levaquin. 3. Chronic hypoxic respiratory failure. stable on home o2 requirement of 2L 4. DM BG remains poorly controlled off metformin and glipizide. Increase lantus to 18U nightly and continue to hold metformin and glipizide in setting of CKD. 5. CKD At baseline; continue MAURA inhibitor 6. Dispo--awaiting [facility] transfer. Medically stable. Status and Disposition: Inpatient for continued pain control, renal failure. When delirium resolves plan for STR. Possibly [facility] on Monday.
[2016-11-26] MEDS: Insulin GLARGINE(*) 1 UNITS UNIT SUBCUT SCH (22:00)
[2016-11-26] MEDS: Lidocaine Patch REMOVE* 1 NOTE MISC PATCH OFF SCH (22:02)
[2016-11-27] MEDS: Levothyroxine TAB* 75 MCG TAB PO SCH (06:07)
[2016-11-27] MEDS: Heparin VIAL(*) 5000 UNITS/ML VIAL (FIVE THOUSAND) SUBCUT SCH ×3 (06:07→21:42)
[2016-11-27] MEDS: Insulin LISPRO* 1 UNITS UNIT SUBCUT SCH ×4 (08:17→21:41)
[2016-11-27] MEDS: Lidocaine PATCH 5%* 1 PATCH TRANSDERM SCH (08:18)
[2016-11-27] MEDS: Senna TAB PO SCH ×2 (08:19→21:40)
[2016-11-27] MEDS: Atorvastatin* 10 MG TAB PO SCH (08:19)
[2016-11-27] MEDS: Allopurinol TAB* 100 MG PO SCH (08:19)
[2016-11-27] MEDS: Acetaminophen TAB* 325 MG PO SCH ×3 (08:19→21:40)
[2016-11-27] MEDS: Lisinopril TAB* 10 MG PO SCH (08:20)
[2016-11-27] MEDS: amLODIPine TAB* 5 MG PO SCH (08:21)
[2016-11-27] MEDS: Docusate CAP* 100 MG PO SCH ×2 (08:21→21:40)
[2016-11-27] MEDS: Atenolol TAB* 50 MG PO SCH (08:21)
[2016-11-27] MEDS: Calcitriol CAP* 0.25 MCG PO SCH (08:21)
[2016-11-27] MEDS ORDERED: Lisinopril TAB* 10 MG PO ONE (13:35)
--- NOTE | 2016-11-27 13:38 | PN ---
Subjective Date of Service: 11/27/16 Interval History: Patient seen this morning. Recalled me from earlier this admission. Reports pain is better controlled. No SOB. Family History: Unchanged from Admission Social History: Unchanged from Admission Past Medical History: Unchanged from Admission Objective Active Medications: Acetaminophen (Tylenol Tab*) 975 mg PO TID [facility] Allopurinol (Zyloprim Tab*) 100 mg PO DAILY [facility] Amlodipine Besylate (Norvasc Tab*) 2.5 mg PO DAILY [facility] Atenolol (Tenormin Tab*) 50 mg PO DAILY [facility] Atorvastatin Calcium (Lipitor*) 10 mg PO DAILY [facility] Calcitriol (Rocaltrol Cap*) 0.25 mcg PO DAILY [facility] Dextrose (D50w Syringe 50 Ml*) 12.5 gm IV PUSH .FOR FS < 60 - SS PRN Docusate Sodium (Colace Cap*) 100 mg PO BID [facility] Famotidine (Pepcid Tab*) 20 mg PO DAILY PRN Heparin Sodium (Porcine) (Heparin Vial(*)) 5,000 units SUBCUT Q8HR [facility] Insulin Glargine (Lantus(*)) 18 units SUBCUT BEDTIME [facility] Insulin Human Lispro (Humalog*) 0 units SUBCUT ACHS [facility] Levothyroxine Sodium (Synthroid Tab*) 75 mcg PO 0600 [facility] Lidocaine (Lidoderm 5% Patch*) 1 patch TRANSDERM 0900 [facility] Lisinopril (Prinivil Tab*) 20 mg PO DAILY [facility] Nystatin (Nystatin Top Powder*) 1 applic TOPICAL TID PRN Ondansetron HCl (Zofran Inj*) 4 mg IV Q6H PRN Oxycodone HCl (Roxycodone Tab*) 2.5 mg PO Q4H PRN Pharmacy Profile Note (Lidocaine Patch Remove*) 1 note PATCH OFF 2100 [facility] Quetiapine Fumarate (Seroquel Tab*) 12.5 mg PO BEDTIME PRN Senna (Senokot Tab*) 1 tab PO BID [facility] Vital Signs 11/26/16 11/26/16 11/26/16 15:29 16:00 19:36 Temperature 98.1 F 97.9 F Pulse Rate 52 49 Respiratory 18 17 Rate Blood Pressure 154/52 161/42 (mmHg) O2 Sat by Pulse 99 99 90 Oximetry 11/26/16 11/27/16 11/27/16 20:00 01:35 07:41 Temperature 98.3 F 97.9 F Pulse Rate 59 63 Respiratory 18 22 17 Rate Blood Pressure 180/58 171/52 (mmHg) O2 Sat by Pulse 94 97 Oximetry Oxygen Devices in Use Now: Nasal Cannula - 3L Appearance: Elderly, F, laying in bed in NAD Eyes: No Scleral Icterus Ears/Nose/Mouth/Throat: Mucous Membranes Moist Neck: NL Appearance and Movements; NL JVP Respiratory: Symmetrical Chest Expansion and Respiratory Effort, - - Slightly diminished in bases Cardiovascular: NL Sounds; No Murmurs; No JVD, RRR Abdominal: NL Sounds; No Tenderness; No Distention Lymphatic: No Cervical Adenopathy Extremities: No Edema Skin: No Rash or Ulcers Neurological: Alert and Oriented x 3 Result Diagrams: 11/25/16 05:23 11/25/16 05:23 Assess/Plan/Problems-Billing Mechanical fall and subsequent rib fxs in a 76 yo F with hx of HTN, HLD, obesity , O2 dependent COPD and DM. Course complicated by delirium, CASE on CKD - Patient Problems (1) Rib fractures Current Visit: Yes Comment: Continue current tylenol and prn oxycodone. Completed ABx for presumed underlying PNA (2) Delirium Current Visit: Yes Comment: Multifactorial. This is a combination of her baseline dementia, narcotics, and hospitalization. Continue qhs Seroquel. (3) Diabetes Current Visit: Yes Comment: Continue Lispro sliding scale and increased Lantus (4) CASE (acute kidney injury) Current Visit: Yes Comment: Creatinine back to baseline (5) HTN (hypertension) Current Visit: Yes Comment: Continue Amlodipine and Atenolol. Increased Lisinopril back to 40 mg home dose. (6) O2 dependent Current Visit: Yes Comment: Patient denies COPD but is on home O2. (7) DVT prophylaxis Current Visit: Yes Comment: SQ heparin Status and Disposition: Inpatient. Delirium seems to have resolved. Possibly [facility] on Monday.
[2016-11-27] MEDS: Chlorthalidone TAB* 50 MG PO SCH (15:02)
[2016-11-27] MEDS: hydrALAZINE IV* 20 MG/ML VIAL IV SLOW PU PRN (17:05)
[2016-11-27] MEDS: Insulin GLARGINE(*) 1 UNITS UNIT SUBCUT SCH (21:41)
[2016-11-27] MEDS: Lidocaine Patch REMOVE* 1 NOTE MISC PATCH OFF SCH (21:42)
[2016-11-28] MEDS: Heparin VIAL(*) 5000 UNITS/ML VIAL (FIVE THOUSAND) SUBCUT SCH (05:51)
[2016-11-28] MEDS: Levothyroxine TAB* 75 MCG TAB PO SCH (05:53)
[2016-11-28] MEDS ORDERED: Lisinopril TAB* 10 MG PO SCH (09:00)
--- NOTE | 2016-11-28 09:44 | DCNOTE ---
Patient seen this morning. Reports pain and breathing are stable. Had small amount of N/V this morning which has resolved. On exam, mild bradycardia, s1 and s2 present, no m/g/r, lungs CTA B/L, no LE edema Plan to discharge to [facility] today for rehab.
[2016-11-28] MEDS: Atorvastatin* 10 MG TAB PO SCH (10:34)
[2016-11-28] MEDS: Acetaminophen TAB* 325 MG PO SCH (10:34)
[2016-11-28] MEDS: amLODIPine TAB* 5 MG PO SCH (10:35)
[2016-11-28] MEDS: Atenolol TAB* 50 MG PO SCH (10:35)
[2016-11-28] MEDS: Allopurinol TAB* 100 MG PO SCH (10:35)
[2016-11-28] MEDS: Calcitriol CAP* 0.25 MCG PO SCH (10:41)
[2016-11-28] MEDS: Chlorthalidone TAB* 50 MG PO SCH (10:41)
[2016-11-28] MEDS: Insulin LISPRO* 1 UNITS UNIT SUBCUT SCH ×2 (10:42→11:48)
[2016-11-28] MEDS ORDERED: Loperamide CAP* 2 MG PO PRN (11:04)
--- NOTE | 2016-11-28 11:09 | DS ---
CC: Dr. Lopez DISCHARGE SUMMARY: DATE OF ADMISSION: 11/17/16 DATE OF DISCHARGE: 11/28/16 PRIMARY CARE PHYSICIAN: Dr. Lopez. PRINCIPAL DISCHARGE DIAGNOSES: 1. Mechanical fall with multiple rib fractures. 2. Pneumonia. 3. Acute kidney injury. 4. Delirium. SECONDARY DIAGNOSES: 1. Type 2 diabetes. 2. Hypertension. 3. Hyperlipidemia. 4. Obesity. 5. Oxygen-dependent chronic obstructive pulmonary disease. 6. Gout. 7. History of degenerative disk disease. DISCHARGE MEDICATION REGIMEN: 1. Tylenol 975 mg by mouth 3 times daily. 2. Lispro sliding scale. 3. Lidocaine patch once daily. 4. Senna 1 tablet by mouth 2 times daily. 5. Norvasc 5 mg by mouth daily. 6. Atenolol/chlorthalidone 50-25 mg 1 tablet by mouth daily. 7. Potassium 10 mEq by mouth daily. 8. Glipizide 10 mg by mouth 2 times daily. 9. Synthroid 75 mcg by mouth daily. 10. Neurontin 600 mg by mouth 3 times daily. 11. Simvastatin 20 mg by mouth daily. 12. Lantus 18 units subcutaneous at bedtime. 13. Tramadol 50 mg by mouth 3 times daily as needed for pain. 14. Lisinopril 40 mg by mouth daily. 15. Allopurinol 100 mg by mouth daily. 16. Calcitriol 0.25 mcg by mouth daily. STUDIES DONE DURING HOSPITALIZATION: Rib x-ray: No displaced rib fracture or pneumothorax. Clinic ally bibasilar atelectasis versus consolidation. Left shoulder x-ray: Impression: Advanced osteoa rthritis at the acromioclavicular joint with progression of less marked osteoarthritis of the glenoh umeral joint, stigmata of calcific tendinopathy, negative for fracture. CT chest and abdomen withou t contrast: Impression: Multiple posterolateral left rib fractures with only the 6th rib fracture exhibiting any significant displacement. No left-sided pneumothorax or large pleural effusion. Cor tical irregularity at the tip of the left scapula may have been a fracture as well, but the margins indicate a more chronic process. 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 This finding can be followed up or further characterized by multi-phase CT or MRI of the abdo men according to adrenal gland protocol. Clinical significance is doubtful. Mild diffuse ground-gl ass opacification and thickening of the interlobular septa could be due to chronic congestive heart failure or early interstitial lung disease. There are additional chronic and degenerative changes a s described in the body of the report, unlikely to be related to the patient's acute presentation." Chest x-ray: Impression: Cardiomegaly with interstitial edema, likely pleural effusions from 11/20. HISTORY OF PRESENT ILLNESS AND HOSPITAL SUMMARY: Please see the full history and physical by Dr. Melodie Vega for full details. Briefly, Ms. Burch is a 76-year- old female with past medical hist ory as above, who presented to the hospital after a mechanical fall where she struck her left side o f her upper back on the toilet seat. She suffered 5 broken ribs that were noted on CT scan here. S he was treated conservatively with pain control; however, the patient did not tolerate narcotics wel l and became delirious. She had decreased p.o. intake and subsequently developed acute on chronic r enal failure. FENa was less than 1%. She was treated with IV fluids with improvement of her kidney function back to her baseline. The patient was treated sparingly with narcotics due to the delirium and was started on a low dose o f Seroquel at night with improvement in her symptoms. She seemed to be tolerating the pain with jus t [id number] Tylenol and she had a low dose of oxycodone 2.5 mg ordered; however, she had not used it for 3 days prior to discharge. She will be sent home on her previous dose of tramadol, whic h can be given as needed in addition to her [id number] Tylenol and Lidoderm patch. The patient had a fever during this hospitalization and there was some concern for possible pneumonia, so the p atient was treated with a full dose of Levaquin while here in the hospital. She was evaluated by physical therapy and was felt to benefit from continued rehab. She will be disc harged to [facility] for short-term rehab there. TIME SPENT: Total time spent on this discharge was 45 minutes. This is a summary of the hospitalization. Please see the full medical record for further details. [id number]/[facility] #: [id number]
[2016-11-28 11:47] VITALS: BP 188/55
[2016-11-28] MEDS: hydrALAZINE IV* 20 MG/ML VIAL IV SLOW PU PRN (11:47)
[2016-11-28] MEDS: Ondansetron INJ* 2 MG/ML VIAL IV PRN (11:48)
[2016-11-28] MEDS: Senna TAB PO SCH (11:54)
[2016-11-28] MEDS: Docusate CAP* 100 MG PO SCH (11:54)
[2016-11-28] MEDS: Lidocaine PATCH 5%* 1 PATCH TRANSDERM SCH (11:54)
== END 2016-11-28 13:05 | DRG 183 ==
LOC: ED 14:24 → MED 23:57
PROVIDERS: ADMIT Internal Medicine; ATTEND Hospitalist
DX: S22.42XA Multiple fractures of ribs, left side, initial encounter for closed fracture (principal); J18.9 Pneumonia, unspecified organism; N17.9 Acute kidney failure, unspecified; Z99.81 Dependence on supplemental oxygen; E11.22 Type 2 diabetes mellitus with diabetic chronic kidney disease; N18.3 Chronic kidney disease, stage 3 (moderate); F03.90 Unspecified dementia, unspecified severity, without behavioral disturbance, psychotic disturbance, mood disturbance, and anxiety; F05 Delirium due to known physiological condition; Z68.41 Body mass index [BMI] 40.0-44.9, adult; J90 Pleural effusion, not elsewhere classified; J44.9 Chronic obstructive pulmonary disease, unspecified; I12.9 Hypertensive chronic kidney disease with stage 1 through stage 4 chronic kidney disease, or unspecified chronic kidney disease; W18.30XA Fall on same level, unspecified, initial encounter; Y92.002 Bathroom of unspecified non-institutional (private) residence as the place of occurrence of the external cause; E78.5 Hyperlipidemia, unspecified; E66.01 Morbid (severe) obesity due to excess calories; M10.9 Gout, unspecified; E87.5 Hyperkalemia; M19.012 Primary osteoarthritis, left shoulder; D17.79 Benign lipomatous neoplasm of other sites; Z79.84 Long term (current) use of oral hypoglycemic drugs; Z79.4 Long term (current) use of insulin; Z79.899 Other long term (current) drug therapy; Z88.1 Allergy status to other antibiotic agents; Z88.0 Allergy status to penicillin; Z88.8 Allergy status to other drugs, medicaments and biological substances; Z91.048 Other nonmedicinal substance allergy status; Z83.3 Family history of diabetes mellitus; Z82.49 Family history of ischemic heart disease and other diseases of the circulatory system; Z81.8 Family history of other mental and behavioral disorders; Z87.891 Personal history of nicotine dependence
CPT/HCPCS: 36415; 36600; 71010; 71250; 74150; 80048; 80053; 81003; 81015; 82570; 82803; 84100; 84145; 84300; 85025; 85027; 85610; 85730; 93005; A9270-GY; J0360; J1170; J1630; J1644; J1956; J2270; J2405; J3010

== ENCOUNTER 2017-07-03 12:29 | Inpatient (IN) | payer MEDICARE, BC ==
[2017-07-03 14:33] LABS: ABS Basophils 0.1 10^3/ul (0-0.2); ABS Eosinophils 0.3 10^3/ul (0-0.6); ABS Lymphocytes 1.6 10^3/ul (1.0-4.8); ABS Monocytes 0.8 10^3/ul (0-0.8); ABS Neutrophils 7.6 10^3/ul (1.5-7.7); ABS Nucleated RBC 0 10^3/ul; Eosinophil % 2.9 % (0-6); Hematocrit 36 % (35-47); Hemoglobin 11.7 g/dl (12.0-16.0); Lymphocyte % 15.3 % (25-47); Mean Corpuscular HGB Conc 33 g/dl (31-36); Mean Corpuscular Hemoglobin 34 pg (27-31); Mean Corpuscular Volume 103 fL (80-97); Mean Platelet Volume 7.9 um3 (7.4-10.4); Nucleated Red Blood Cells % 0.1; Platelet Count 202 10^3/ul (150-450); Red Blood Count 3.47 10^6/ul (4.0-5.4); Red Cell Distribution Width 16 % (10.5-15); White Blood Count 10.3 10^3/ul (3.5-10.8)
[2017-07-03 14:42] LABS: INR 1.04 (0.77-1.02)
[2017-07-03 14:55] LABS: EGFR Non-African American 25.5 (>60)
--- NOTE | 2017-07-03 15:03 | RAD ---
INDICATION: Short of breath COMPARISON: November 20, 2016 TECHNIQUE: An AP portable view obtained at 1438 hours is submitted. FINDINGS: Bones/Soft Tissues: There are no acute bony findings. Cardiomediastinal: The cardiac silhouette, central pulmonary vessel, and interstitium are prominent consistent with moderate vascular congestion. Lungs: Early alveolar infiltrative change likely pulmonary edema. Pleura: Small bilateral pleural effusions. Other: None IMPRESSION: MODERATE VASCULAR CONGESTIVE FINDINGS.
[2017-07-03] MEDS ORDERED: Furosemide IV* 10 MG/ML VIAL (40 MG) IV ONE (16:42)
[2017-07-03 16:52] LABS: Urine Appearance Cloudy; Urine Blood Negative (Negative); Urine Color Yellow; Urine Ketones Negative (Negative); Urine Protein 2+(100 mg/dL) (Negative); Urine Specific Gravity 1.014 (1.010-1.030); Urine Urobilinogen Negative (Negative)
[2017-07-03] MEDS ORDERED: Acetaminophen TAB* 325 MG PO PRN (18:18)
[2017-07-03] MEDS ORDERED: traMADol TAB* 50 MG PO PRN (18:18)
[2017-07-03] MEDS ORDERED: Loperamide CAP* 2 MG PO PRN (18:18)
[2017-07-03] MEDS ORDERED: Dextrose 50% Syringe 50 ML* 25 GM/50 ML SYRINGE IV PUSH PRN (18:20)
[2017-07-03] MEDS ORDERED: Magnesium Sulfate 2 GM IV* 2 GM/50 ML BAG IVPB ONE (20:31)
[2017-07-03] MEDS ORDERED: Enoxaparin(*) 100 MG/ML SYR SUBCUT SCH ×2 (21:00)
[2017-07-03] MEDS ORDERED: Insulin GLARGINE(*) 1 UNITS UNIT SUBCUT SCH (21:00)
[2017-07-03] MEDS: hydrALAZINE IV* 20 MG/ML VIAL IV SLOW PU PRN (21:08)
[2017-07-03] MEDS ORDERED: Heparin VIAL(*) 5000 UNITS/ML VIAL (FIVE THOUSAND) SUBCUT SCH (22:00)
[2017-07-03] MEDS: Gabapentin CAP(*) 300 MG PO SCH (22:14)
[2017-07-03] MEDS: traMADol TAB* 50 MG PO SCH (22:25)
--- NOTE | 2017-07-03 22:56 | ED ---
Gonzalo Mancini Nilda, scribed for Stew Pettit MD on 07/03/17 at 1411 . Shortness of Breath - HPI Summary HPI Summary: This patient is a 77 year old F presenting to [facility] with a chief complaint of exacerbated acute respiratory distress while at rest for the past month and a half that worsened today. The patient rates the pain 0/10 in severity. Symptoms aggravated by exertion and alleviated by nose spray. Patient reports weight loss , edema, nonproductive cough, and dry mouth. Patient denies bilat calf pain, wheezing, fever, chills, CP, loss of appetite, bloody stool, and burning with urination. Pt is on 3L O2 at home (recently increased from 2L O2). Medications include water pills. Pt states Dr. Lopez (PCP) referred pt to ED. - History of Current Complaint Chief Complaint: EDShortnessOfBreath Time Seen by Provider: 07/03/17 13:41 Hx Obtained From: Patient Onset/Duration: Sudden Onset, Lasting Weeks, Still Present Timing: Constant Dyspnea At: Rest Aggrevating Factors: Movement Alleviating Factors: OTC Meds Associated Signs & Symptoms: Cough (Nonproductive), Edema - Allergy/Home Medications Allergies/Adverse Reactions: Allergies Allergy/AdvReac Type Severity Reaction Status Date / Time Adhesive Tape [Paper Tape] Allergy Rash Verified 07/03/17 17:05 cephalexin [From Keflex] Allergy Unknown Verified 07/03/17 17:05 Reaction Details duloxetine [From Cymbalta] Allergy Unknown Verified 07/03/17 17:05 Reaction Details Penicillins Allergy Unknown Verified 07/03/17 17:05 Reaction Details sulfamethoxazole Allergy Unknown Verified 07/03/17 17:05 [From Bactrim] Reaction Details trimethoprim [From Bactrim] Allergy Unknown Verified 07/03/17 17:05 Reaction Details grantrisin Allergy Unknown Uncoded 11/17/16 14:57 Reaction Details PMH/Surg Hx/FS Hx/Imm Hx Endocrine/Hematology History: Reports: Hx Diabetes, Hx Thyroid Disease Cardiovascular History: Reports: Hx Hypercholesterolemia, Hx Hypertension Respiratory History: Reports: Hx Chronic Obstructive Pulmonary Disease (COPD) - 2L home O2 History: Reports: Hx Chronic Renal Failure - Second to DM Musculoskeletal History: Reports: Hx Arthritis, Hx Back Problems - DJD, Hx Gout Sensory History: Reports: Hx Contacts or Glasses Denies: Hx Legally Blind, Hx Deafness, Hx Hearing Aid, Hx Hearing Problem Opthamlomology History: Reports: Hx Contacts or Glasses Denies: Hx Legally Blind - Surgical History Surgery Procedure, Year, and Place: ORIF of ankle Infectious Disease History: No Infectious Disease History: Denies: Traveled Outside the [place] in Last 30 Days - Family History Known Family History: Positive: Diabetes - Social History Alcohol Use: None Substance Use Type: Reports: None Smoking Status (MU): Never Smoked Tobacco Review of Systems Negative: Fever, Chills Positive: Other - dry mouth Negative: Chest Pain Positive: Shortness Of Breath, Cough, Other - negative wheezing Positive: Other - weight loss; negative bloody stool, loss of appetite Negative: burning Positive: Edema, Other - negative bilat calf pain All Other Systems Reviewed And Are Negative: Yes Physical Exam - Summary Physical Exam Summary: General: well-appearing, no pain distress Skin: warm, color reflects adequate perfusion, dry Head: normal Eyes: EOMI, MARK ENT: normal Neck: supple, nontender Respiratory: CTA, breath sounds present Cardiovascular: RRR Abdomen: soft, nontender Bowel: present Musculoskeletal: normal, strength/ROM intact Neurological: normal, sensory/motor intact, A&O x3 Psychological: affect/mood appropriate Triage Information Reviewed: Yes Vital Signs On Initial Exam: Initial Vitals Temp Pulse Resp BP Pulse Ox 98.6 F 108 20 212/85 84 07/03/17 12:42 07/03/17 12:42 07/03/17 12:42 07/03/17 12:42 07/03/17 12:42 Vital Signs Reviewed: Yes Diagnostics - Vital Signs Vital Signs Temp Pulse Resp BP Pulse Ox 07/03/17 12:42 98.6 F 108 20 212/85 84 - Laboratory Lab Results: Lab Results 07/03/17 07/03/17 07/03/17 Range/Units 14:25 14:25 14:25 WBC 10.3 (3.5-10.8) 10^3/ul RBC 3.47 L (4.0-5.4) 10^6/ul Hgb 11.7 L (12.0-16.0) g/dl Hct 36 (35-47) % MCV 103 H (80-97) fL MCH 34 H (27-31) pg MCHC 33 (31-36) g/dl RDW 16 H (10.5-15) % Plt Count 202 (150-450) 10^3/ul MPV 7.9 (7.4-10.4) um3 Neut % (Auto) 73.7 (38-83) % Lymph % (Auto) 15.3 L (25-47) % [place] % (Auto) 7.4 H (0-7) % Eos % (Auto) 2.9 (0-6) % Baso % (Auto) 0.7 (0-2) % Absolute Neuts (auto) 7.6 (1.5-7.7) 10^3/ul Absolute Lymphs (auto) 1.6 (1.0-4.8) 10^3/ul Absolute Monos (auto) 0.8 (0-0.8) 10^3/ul Absolute Eos (auto) 0.3 (0-0.6) 10^3/ul Absolute Basos (auto) 0.1 (0-0.2) 10^3/ul Absolute Nucleated RBC 0 10^3/ul Nucleated RBC % 0.1 INR (Anticoag Therapy) 1.04 H (0.77-1.02) APTT 32.9 (26.0-36.3) seconds D-Dimer, Quantitative 631 H (Less Than 230) ng/mL Sodium 145 (139-145) mmol/L Potassium 4.3 (3.5-5.0) mmol/L Chloride 109 (101-111) mmol/L Carbon Dioxide 26 (22-32) mmol/L Anion Gap 10 (2-11) mmol/L BUN 36 H (6-24) mg/dL Creatinine 1.91 H (0.51-0.95) mg/dL Est GFR ( Amer) 32.9 (>60) Est GFR (Non-Af Amer) 25.5 (>60) BUN/Creatinine Ratio 18.8 (8-20) Glucose 77 (70-100) mg/dL Lactic Acid (0.5-2.0) mmol/L Calcium 10.4 H (8.6-10.3) mg/dL Magnesium 1.8 L (1.9-2.7) mg/dL Total Bilirubin 0.60 (0.2-1.0) mg/dL AST 19 (13-39) U/L ALT 13 (7-52) U/L Alkaline Phosphatase 106 H (34-104) U/L Total Creatine Kinase 48 (10-223) U/L CK-MB (CK-2) 2.7 (0.6-6.3) ng/mL Troponin I 0.03 (<0.04) ng/mL C-Reactive Protein 6.50 H (< 5.00) mg/L B-Natriuretic Peptide ( - 100) pg/mL Total Protein 7.9 (6.4-8.9) g/dL Albumin 4.4 (3.2-5.2) g/dL Globulin 3.5 (2-4) g/dL Albumin/Globulin Ratio 1.3 (1-3) Lipase 37 (11.0-82.0) U/L TSH 1.90 (0.34-5.60) mcIU/mL Urine Color Urine Appearance Urine pH (5-9) Ur Specific Atkinson (1.010-1.030) Urine Protein (Negative) Urine Ketones (Negative) Urine Blood (Negative) Urine Nitrate (Negative) Urine Bilirubin (Negative) Urine Urobilinogen (Negative) Ur Leukocyte Esterase (Negative) Urine WBC (Auto) (Absent) Urine RBC (Auto) (Absent) Ur Squamous Epith Cells (Absent) Ur Renal Epithelial Cell (Absent) Urine Bacteria (Absent) Urine Glucose (Negative) Urine Ascorbic Acid (Negative) 07/03/17 07/03/17 07/03/17 Range/Units 14:25 14:25 16:28 WBC (3.5-10.8) 10^3/ul RBC (4.0-5.4) 10^6/ul Hgb (12.0-16.0) g/dl Hct (35-47) % MCV (80-97) fL MCH (27-31) pg MCHC (31-36) g/dl RDW (10.5-15) % Plt Count (150-450) 10^3/ul MPV (7.4-10.4) um3 Neut % (Auto) (38-83) % Lymph % (Auto) (25-47) % [place] % (Auto) (0-7) % Eos % (Auto) (0-6) % Baso % (Auto) (0-2) % Absolute Neuts (auto) (1.5-7.7) 10^3/ul Absolute Lymphs (auto) (1.0-4.8) 10^3/ul Absolute Monos (auto) (0-0.8) 10^3/ul Absolute Eos (auto) (0-0.6) 10^3/ul Absolute Basos (auto) (0-0.2) 10^3/ul Absolute Nucleated RBC 10^3/ul Nucleated RBC % INR (Anticoag Therapy) (0.77-1.02) APTT (26.0-36.3) seconds D-Dimer, Quantitative (Less Than 230) ng/mL Sodium (139-145) mmol/L Potassium (3.5-5.0) mmol/L Chloride (101-111) mmol/L Carbon Dioxide (22-32) mmol/L Anion Gap (2-11) mmol/L BUN (6-24) mg/dL Creatinine (0.51-0.95) mg/dL Est GFR ( Amer) (>60) Est GFR (Non-Af Amer) (>60) BUN/Creatinine Ratio (8-20) Glucose (70-100) mg/dL Lactic Acid 1.0 (0.5-2.0) mmol/L Calcium (8.6-10.3) mg/dL Magnesium (1.9-2.7) mg/dL Total Bilirubin (0.2-1.0) mg/dL AST (13-39) U/L ALT (7-52) U/L Alkaline Phosphatase (34-104) U/L Total Creatine Kinase (10-223) U/L CK-MB (CK-2) (0.6-6.3) ng/mL Troponin I (<0.04) ng/mL C-Reactive Protein (< 5.00) mg/L B-Natriuretic Peptide 2006 H ( - 100) pg/mL Total Protein (6.4-8.9) g/dL Albumin (3.2-5.2) g/dL Globulin (2-4) g/dL Albumin/Globulin Ratio (1-3) Lipase (11.0-82.0) U/L TSH (0.34-5.60) mcIU/mL Urine Color Yellow Urine Appearance Cloudy Urine pH 5.0 (5-9) Ur Specific Atkinson 1.014 (1.010-1.030) Urine Protein 2+(100 mg/dl) A (Negative) Urine Ketones Negative (Negative) Urine Blood Negative (Negative) Urine Nitrate Negative (Negative) Urine Bilirubin Negative (Negative) Urine Urobilinogen Negative (Negative) Ur Leukocyte Esterase 1+ A (Negative) Urine WBC (Auto) 3+(>20/hpf) A (Absent) Urine RBC (Auto) Absent (Absent) Ur Squamous Epith Cells Present A (Absent) Ur Renal Epithelial Cell Present A (Absent) Urine Bacteria Absent (Absent) Urine Glucose Negative (Negative) Urine Ascorbic Acid * A (Negative) Result Diagrams: 07/03/17 14:25 07/03/17 14:25 Lab Statement: Any lab studies that have been ordered have been reviewed, and results considered in the medical decision making process. - Radiology CXR Radiology Interpretation Completed By: Radiologist - CXR reveals moderate vascular congestive findings. Dr. Pettit has reviewed this radiology report. - EKG 1301 Cardiac Rate: Bradycardia - 59 bpm EKG Rhythm: Sinus Bradycardia EKG Interpretation: LBBB (seen in prior EKG 11/19/16), Prolong IN interval of 214. Course/Dx - Course Course Of Treatment: Medications reviewed. Allergies reviewed. BP noted and advised to follow up with PCP. ADMIT HOSPITALIST. CRITICAL CARE TIME LESS THAN 30 MINUTES. - Diagnoses Provider Diagnoses: HTN (hypertension), CHF (congestive heart failure) - Physician Notifications Discussed Care of Patient With: Tiki Vega - Hospitalist Time Discussed With Above Provider: 17:07 Instructed by Provider To: Admit As Inpatient Discharge - Sign-Out/Discharge Documenting (check all that apply): Discharge/Admit/Transfer - Discharge Plan Condition: Stable Disposition: ADMITTED TO [facility] - Billing Disposition and Condition Condition: STABLE Disposition: [facility] The documentation as recorded by the Gonzalo poole Nilda accurately reflects the service I personally performed and the decisions made by , Stew Pettit MD.
--- NOTE | 2017-07-04 00:22 | PN ---
Hospitalist Progress Note Date of Service: 07/04/17 called for bradycardia, patient with no symptoms, will hold beta jerald now and check ekg.
[2017-07-04 05:22] LABS: EGFR Non-African American 25.9 (>60)
--- NOTE | 2017-07-04 05:42 | HP ---
CC: Mani Lopez MD * HISTORY AND PHYSICAL: DATE OF ADMISSION: 07/03/17 PRIMARY CARE PROVIDER: Mani Lopez MD ATTENDING PHYSICIAN: Tiki Vega MD * (dictated by Radha Pop NP). CHIEF COMPLAINT: Shortness of breath. HISTORY OF PRESENT ILLNESS: Ms. Burch is a 77-year-old female with past medical history significant for degenerative joint disease, type 2 diabetes mellitus, hypertension, hyperlipidemia, obesity, COPD and oxygen dependent, gout , stage 3 chronic kidney disease, who states that over the last month and a half , she has had increased shortness of breath, especially with ambulation but also at rest. According to the patient's daughter, she is generally on 2 L of oxygen via nasal cannula. Last week when she noticed that her mother was having increased shortness of breath, she increased her oxygen to 3 L via nasal cannula. The patient eats a lot of pre-made and boxed foods, most of her foods are not homemade. She denies any recent fevers, chills, chest pain. She chronically has a cough. She describes this being caused from "a tickle". She has a lower extremity edema that she reports taking furosemide for. She chronically has shortness of breath, but again this is worse than her baseline. She denies nausea, vomiting, diarrhea, dysuria, or other urinary symptoms. She reports that her feet are often swollen, especially when her feet are down and not elevated. Due to the patient's shortness of breath, her primary care provider recommended she go to the emergency room for further evaluation. While in the emergency room, the patient had a chest x-ray showing moderate vascular congestion. She had an EKG showing a sinus bradycardia. She had labs that were fairly unremarkable with the exception of BNP of 2005. Due to the patient's shortness of breath and suspected heart failure, the hospitalists were asked to evaluate the patient for admission. PAST MEDICAL HISTORY: 1. Degenerative disk disease. 2. Type 2 diabetes mellitus. 3. Hypertension. 4. Hyperlipidemia. 5. Obesity. 6. COPD, oxygen dependent. 7. Gout. 8. Chronic kidney disease stage 3. PAST SURGICAL HISTORY: Status post right leg ORIF. HOME MEDICATIONS: Include: 1. Levothyroxine 75 mcg oral daily. 2. Lantus 38 units subcutaneous twice daily. 3. Metformin 1000 mg oral twice daily. 4. Furosemide 20 mg oral daily. 5. Calcitriol 0.25 mcg oral daily. 6. Atenolol/chlorthalidone 50/25, 1 tablet oral daily. 7. Lisinopril 20 mg oral daily. 8. Allopurinol 100 mg oral daily. 9. Acetaminophen 975 mg oral 3 times daily as needed for pain. 10. Potassium chloride 10 mEq oral daily. 11. Imodium 2 mg oral every 4 hours as needed for loose stools. 12. Gabapentin 600 mg oral 3 times daily. 13. Tramadol 50 mg oral 3 times daily. 14. Simvastatin 20 mg oral daily. 15. Amlodipine 5 mg oral daily. ALLERGIES: ADHESIVE TAPE, CEPHALEXIN, DULOXETINE, PENICILLIN, BACTRIM, and GANTRISIN. FAMILY HISTORY: The patient's father had a history of coronary artery disease and diabetes mellitus. There is no family history of cancer. SOCIAL HISTORY: The patient quit smoking in 1998. She states prior to that she had a 1 pack a day smoking history for many years. She denies alcohol or recreational drug use. She lives with her daughter. Her daughter, Britany Schafer , will be her surrogate decision maker in the event she is unable to make decisions for herself. REVIEW OF SYSTEMS: I performed an 11-point review of systems. All the pertinent positives and negatives are mentioned in the history of present illness. The remaining review of systems are negative. PHYSICAL EXAMINATION GENERAL APPEARANCE: The patient is alert, pleasant, appears to be in no acute distress. VITAL SIGNS: Temperature 98.5, pulse 52, respiratory rate 16, O2 sat 95% on 6 L via nasal cannula, blood pressure 171/100. HEENT: Normocephalic, atraumatic. Pupils are equal and reactive to light. Extraocular movements are intact. NECK: Supple. RESPIRATORY: There is no accessory muscle use and the lungs have some fine crackles in the bases. CARDIOVASCULAR: Regular rate and rhythm. S1 and S2 present. There are no murmurs, rubs or gallops heard. ABDOMEN: Soft, nontender and nondistended. There are bowel sounds present x4. EXTREMITIES: There is 1+ bilateral lower extremity pitting edema up to her knees. DP and PT pulses are 2+ and symmetric. MUSCULOSKELETAL: There is no clubbing or cyanosis noted. The patient exhibits good strength in all extremities. NEUROLOGIC: The patient is alert and oriented x4. Cranial nerves II through XII are grossly intact. PSYCHOLOGICAL: The patient is calm and cooperative. SKIN: There are no rashes or abnormalities seen. DIAGNOSTIC STUDIES/LABORATORY DATA: Sodium 145, potassium 4.3, chloride 109, CO2 of 26, BUN 36, creatinine 1.91, glucose 77. White blood cell count 10.3, hemoglobin 11.7, hematocrit 36, and platelet count 202,000. INR 104, D-dimer 631. BNP 2006. CRP 6.5. EKG shows a sinus mago at a rate of 59 and a left bundle-branch block. This EKG is from our previous from 11/19/16. Chest x-ray from today. Radiologist's impression: Moderate vascular congestive findings. IMPRESSION: Ms. Burch is a 77-year-old female with a past medical history significant for degenerative disk disease, diabetes type 2, hypertension, hyperlipidemia, obesity, chronic obstructive pulmonary disease with oxygen dependence, gout, chronic kidney disease stage 3, who presented to the emergency room with complaints of increased shortness of breath for 1-1/2 months. She will be admitted as an observation for suspected congestive heart failure. ASSESSMENT/PLAN: 1. Shortness of breath. I suspect this is secondary to congestive heart failure. The patient last had an echo in 2012, showing an EF of 50% to 55%, mild -to-moderate left ventricular hypertrophy, and mild aortic stenosis. I will get a repeat echo to see if her EF has decreased further and continue the patient on IV diuresis with furosemide 20 mg IV daily and hold the patient's home Lasix. The patient also has an elevated D-dimer. She is unable to have a CTA of her chest due to her renal insufficiency. I am going to order a V/Q scan just to rule out a pulmonary embolus. Additionally, the patient will be started on daily weights, strict I's and O's. She will be on a low-sodium diet. I am going to ask Dietary to consult on the patient to give her and her daughter recommendations for a low-sodium diet. 2. Hypomagnesemia. The patient will receive replacement tonight and we will recheck her magnesium level in the morning. 3. Chronic kidney disease stage 4. The patient's creatinine appears to be at baseline. 4. Diabetes mellitus. The patient will have glucose checks. We will continue her on her Lantus and place her on a lispro sliding scale, holding her metformin while she is hospitalized. 5. Hypertension. The patient has been hypertensive in the emergency room. I suspect that this will improve with diuresis and she will be continued on her home atenolol/chlorthalidone, lisinopril, and Norvasc. She may need to have her medications adjusted as she is on a lower dosing of them. 6. Chronic obstructive pulmonary disease with chronic hypoxic respiratory failure. The patient has increased oxygen needs. I suspect she is not a chronic obstructive pulmonary disease exacerbation as she does not have any wheezing. Continue supplemental oxygen as needed. I am going to rule out a pulmonary embolism as stated above. The patient is not on any inhalers at home and I do not believe she has had a formal chronic obstructive pulmonary disease diagnosis, but with her smoking history I suspect she does in fact have chronic obstructive pulmonary disease. 7. Gout. The patient will be continued on her home allopurinol. 8. Chronic pain. The patient will be continued on her home as-needed acetaminophen and tramadol as needed. 9. Fluids, electrolytes and nutrition. The patient will be on a heart healthy diet. 10. Code status. Full code. 11. DVT prophylaxis. The patient will be placed on full-dose Lovenox (she will be on daily dosing due to her renal insufficiency) until we rule out a pulmonary embolism and then can be switched to heparin. I am going to hold on giving the patient any SCD's as it is contraindicated in the setting of heart failure. 12. Disposition. Observation. TIME SPENT: Time for this admission was approximately 60 minutes; greater than half of that was spent with the patient and her daughter discussing medications , past medical history, and the events leading up to her arrival today and performing a physical examination. The case has been reviewed with the attending Dr. Vega, who agrees with the plan. Reviewed by MARY ELLEN TADOE 07/05/17 0948 [id number]/[facility] #: [id number] [facility]
[2017-07-04] MEDS: Levothyroxine TAB* 75 MCG TAB PO SCH (05:50)
[2017-07-04] MEDS: Insulin LISPRO* 1 UNITS UNIT SUBCUT SCH ×3 (08:21→16:23)
[2017-07-04] MEDS: Lisinopril TAB* 10 MG PO SCH (08:43)
[2017-07-04] MEDS: Gabapentin CAP(*) 300 MG PO SCH ×3 (08:43→21:55)
[2017-07-04] MEDS: Calcitriol CAP* 0.25 MCG PO SCH (08:43)
[2017-07-04] MEDS: Allopurinol TAB* 100 MG PO SCH (08:43)
[2017-07-04] MEDS: Atorvastatin* 10 MG TAB PO SCH (08:43)
[2017-07-04] MEDS: Chlorthalidone TAB* 50 MG PO SCH (08:44)
[2017-07-04] MEDS: Potassium Chlor TAB* 10 MEQ TAB.ER PO SCH (08:44)
[2017-07-04] MEDS: Furosemide IV* 10 MG/ML VIAL (40 MG) IV SLOW PU SCH (08:44)
[2017-07-04] MEDS: amLODIPine TAB* 5 MG PO SCH (08:44)
[2017-07-04] MEDS: traMADol TAB* 50 MG PO SCH ×2 (08:49→21:55)
[2017-07-04] MEDS: Nystatin TOP POWDER* 15 GM BTL TOPICAL SCH ×2 (08:50→12:39)
[2017-07-04] MEDS ORDERED: Insulin GLARGINE(*) 1 UNITS UNIT SUBCUT SCH (09:00)
[2017-07-04] MEDS ORDERED: Furosemide IV* 10 MG/ML 2 ML VIAL (20 MG) IV SLOW PU SCH (09:00)
[2017-07-04] MEDS ORDERED: CHLORTHALIDONE PO SCH (09:00)
[2017-07-04] MEDS ORDERED: Atenolol TAB* 50 MG PO SCH (09:00)
[2017-07-04] MEDS ORDERED: ATENOLOL PO SCH (09:00)
--- NOTE | 2017-07-04 12:32 | RAD ---
INDICATION: Moderate vascular congestion on chest radiographs. Short of breath. Evaluate for acute pulmonary embolus COMPARISON: Chest x-ray same date TECHNIQUE: Following the administration of 11.8 millicuries of xenon gas, anterior and posterior deep breath, equilibrium, and washout phase imaging was performed. Following the intravenous administration of 6.1 millicuries of technetium 99m, MAA, anterior, posterior, lateral, and oblique imaging of the chest was performed. FINDINGS: Ventilation images show essentially normal ventilation. The perfusion images show no segmentally absent areas of ventilation/perfusion mismatch. The probability of acute pulmonary embolus is low. IMPRESSION: LOW PROBABILITY FOR ACUTE PULMONARY EMBOLUS. SUGGEST A FOLLOW-UP CHEST X-RAY TO MONITOR VASCULAR CONGESTION.
[2017-07-04] MEDS: Nystatin CREAM* 15 GM TUBE TOPICAL SCH ×2 (13:46→21:56)
--- NOTE | 2017-07-04 14:32 | RAD ---
Indication: Shortness of breath. On O2 oxygen. Prior tobacco use. COPD. Comparison: July 03, 2017 chest radiograph. November 17, 2016 CT. Technique: Sitting AP and lateral chest views. Report: Morbid obesity limits image quality. Severe cardiomegaly. Prominent ill-defined central pulmonary vasculature and bilateral alveolar opacities as well as prominence of the interstitial markings. Probable very small dependent pleural effusions. Negative for pneumothorax. IMPRESSION: The constellation of findings favors pulmonary vascular congestion with patchy alveolar and interstitial edema. Correlate with clinical assessment as bronchopneumonia could have a similar appearance.
--- NOTE | 2017-07-04 15:33 | PN ---
Subjective Date of Service: 07/04/17 Interval History: HOSPITALIST PROGRESS NOTE Patient seen and examined at bedside. She feels better today, but still has dyspnea. Family History: Unchanged from Admission Social History: Unchanged from Admission Past Medical History: Unchanged from Admission Objective Active Medications: Acetaminophen (Tylenol Tab*) 975 mg PO TID PRN PRN Reason: FEVER/PAIN Allopurinol (Zyloprim Tab*) 100 mg PO DAILY [facility] 234 BEDS AT THE [facility] Last Admin: 07/04/17 08:43 Dose: 100 mg Amlodipine Besylate (Norvasc Tab*) 5 mg PO DAILY [facility]S INCLUDE 234 BEDS AT THE [facility] Last Admin: 07/04/17 08:44 Dose: 5 mg Atorvastatin Calcium (Lipitor*) 10 mg PO DAILY [facility]CLUDE 234 BEDS AT THE [facility] Last Admin: 07/04/17 08:43 Dose: 10 mg Calcitriol (Rocaltrol Cap*) 0.25 mcg PO DAILY [facility]CLUDE 234 BEDS AT THE [facility] Last Admin: 07/04/17 08:43 Dose: 0.25 mcg Chlorthalidone (Hygroton Tab*) 25 mg PO DAILY [facility]S INCLUDE 234 BEDS AT THE [facility] Last Admin: 07/04/17 08:44 Dose: 25 mg Dextrose (D50w Syringe 50 Ml*) 12.5 gm IV PUSH .FOR FS < 60 - SS PRN PRN Reason: FS < 60 Last Admin: 07/04/17 05:48 Dose: 12.5 gm Furosemide (Lasix Iv*) 40 mg IV SLOW PU DAILY [facility]S INCLUDE 234 BEDS AT THE [facility] Last Admin: 07/04/17 08:44 Dose: 40 mg Gabapentin (Neurontin Cap(*)) 600 mg PO TID [facility]S INCLUDE 234 BEDS AT THE [facility] Last Admin: 07/04/17 13:45 Dose: 600 mg Heparin Sodium (Porcine) (Heparin Vial(*)) 5,000 units SUBCUT Q8HR COUNTS INCLUDE 234 BEDS AT THE [facility] Hydralazine HCl (Apresoline Iv*) 5 mg IV SLOW PU Q6H PRN PRN Reason: Systolic Bp Greater Than: 180 Last Admin: 07/03/17 21:08 Dose: 5 mg Insulin Glargine (Lantus(*)) 30 units SUBCUT BID COUNTS INCLUDE 234 BEDS AT THE [facility] Last Admin: 07/04/17 08:44 Dose: 30 units Insulin Human Lispro (Humalog*) 0 - 10 units SUBCUT AC [place] PRN Reason: Protocol Last Admin: 07/04/17 11:53 Dose: Not Given Levothyroxine Sodium (Synthroid Tab*) 75 mcg PO 0600 COUNTS INCLUDE 234 BEDS AT THE [facility] Last Admin: 07/04/17 05:50 Dose: 75 mcg Lisinopril (Prinivil Tab*) 20 mg PO DAILY COUNTS INCLUDE 234 BEDS AT THE [facility] Last Admin: 07/04/17 08:43 Dose: 20 mg Loperamide HCl (Imodium Cap*) 2 mg PO Q4H PRN PRN Reason: DIARRHEA Nystatin (Nystatin Cream*) 1 applic TOPICAL TID COUNTS INCLUDE 234 BEDS AT THE [facility] Last Admin: 07/04/17 13:46 Dose: 1 applic Potassium Chloride (Klor Con Er Tab*) 10 meq PO DAILY COUNTS INCLUDE 234 BEDS AT THE [facility] Last Admin: 07/04/17 08:44 Dose: 10 meq Tramadol HCl (Ultram*) 50 mg PO BID COUNTS INCLUDE 234 BEDS AT THE [facility] Last Admin: 07/04/17 08:49 Dose: 50 mg Vital Signs - 8 hr 07/04/17 07/04/17 07/04/17 13:41 13:45 15:12 Temperature 98.6 F Pulse Rate 46 Respiratory 20 18 Rate Blood Pressure 153/59 (mmHg) O2 Sat by Pulse 94 99 Oximetry Oxygen Devices in Use Now: OxyMask - 8 liters Appearance: Elderly obese lady sitting up in bed in [facility]. Eyes: No Scleral Icterus Ears/Nose/Mouth/Throat: Mucous Membranes Moist Neck: Trachea Midline Respiratory: Symmetrical Chest Expansion and Respiratory Effort, - - BS+ bilaterally with bilateral fine crackles Cardiovascular: RRR - Normal S1 and S2 Extremities: - - Bilateral LE edema Neurological: Alert and Oriented x 3, NL Muscle Strength and Tone Result Diagrams: 07/03/17 14:25 07/04/17 04:50 Assess/Plan/Problems-Billing Assessment: Mrs Burch is a 77yo F with PMH of obesity, type 2 DM, HTN, HLD, COPD on home O2, gout, CKD stage 3, who presented to ED with c/o progressive dyspnea, found to have probable CHF exacerbation. - Patient Problems (1) Acute and chronic respiratory failure Comment: - Patient was up to 10 liters of O2, now titred down to 8 liters. - Likely secondary to CHF exacerbation. (2) CHF (congestive heart failure) Comment: - Awaiting echo. - Continue diuresis. (3) D-dimer, elevated Comment: - V/Q scan showed low probablity of PE. (4) HTN (hypertension) Comment: - Continue Amlodipine and Lisinopril. (5) Bradycardia Comment: - Asymptomatic. - Bradycardia and LBBB already present in 2017. (6) Diabetes Comment: - Glucose on the lower side - will decrease Lantus to 10 units and continue SS. (7) DVT prophylaxis Comment: - SQ heparin.
[2017-07-04] MEDS: Heparin VIAL(*) 5000 UNITS/ML VIAL (FIVE THOUSAND) SUBCUT SCH ×2 (15:47→21:56)
--- NOTE | 2017-07-04 16:44 | ECHO ---
Patient: FLAQUITA RAMESH Rec#: [id number] : 1940 Date: 07/04/2017 Age: 77y Height: 154.94 cm / 61.0 in Weight: 93.89 kg / 206.9 lbs Sex: F BSA: 1.92 Room#: 435 Admit Date#: 07/03/2017 Type: Inpatient Referring: Radha Rueda NP Reading: Mateusz Olivas MD Manager Membership: Radha Muse RDCS CC: Mani Lopez MD Transthoracic Echocardiogram Indication: CHF, shortness of breath BP: 153/46 HR: 52 Rhythm: Bradycardia Findings History: COPD, DM, HTN, HLD, CKD, and gout. Technical Comments: The study quality is fair. Left Ventricle: The left ventricular chamber size is normal. Moderate concentric left ventricular hypertrophy is observed. Global left ventricular wall motion and contractility are within normal limits. Left ventricular systolic function is at the lower limits of normal. The estimated ejection fraction is 50-55%. There is septal flattening of the interventricular septum consistent with right ventricular volume or pressure overload. Abnormal left ventricular diastolic function is observed. The left ventricular diastolic filling pattern is consistent with pseudonormalization. Left Atrium: The left atrium is severely dilated. Right Ventricle: Moderator Band present. The right ventricle is moderately dilated. The right ventricular global systolic function is mildly reduced. Right Atrium: The right atrium is moderately dilated. Aortic Valve: The aortic valve is trileaflet. The aortic valve leaflets are mildly thickened. There is evidence of aortic sclerosis without stenosis. There is no evidence of aortic regurgitation. There is no evidence of aortic stenosis. Mitral Valve: There is posterior mitral annular calcification. The mitral valve leaflets are mildly thickened. There is mild to moderate mitral regurgitation. The mitral regurgitant jet is eccentric. There is no evidence of mitral stenosis. Tricuspid Valve: The tricuspid valve leaflets are normal. There is mild to moderate tricuspid regurgitation. The right ventricular systolic pressure is estimated at 37 mmHg. There is evidence of mild pulmonary hypertension. There is no tricuspid stenosis. Pulmonic Valve: The pulmonic valve appears normal. There is trace to mild pulmonic regurgitation. There is no pulmonic stenosis. Pericardium: There is no significant pericardial effusion. A pericardial fat pad is visualized. Aorta: There is no dilatation of the ascending aorta. The aortic arch is not well visualized. The aortic root is normal in size. Pulmonary Artery: The main pulmonary artery is not well visualized. Venous: The inferior vena cava appears normal in size. There is a greater than 50% respiratory change in the inferior vena cava dimension. Summary: There are no significant changes when compared to the previous study done on 01/04/13 Conclusions Global left ventricular wall motion and contractility are within normal limits. Left ventricular systolic function is at the lower limits of normal. The estimated ejection fraction is 50-55%. There is septal flattening of the interventricular septum consistent with right ventricular volume or pressure overload. There is evidence of aortic sclerosis without stenosis. There is mild to moderate mitral regurgitation. There is mild to moderate tricuspid regurgitation. There is evidence of mild pulmonary hypertension. There is no significant pericardial effusion. There are no significant changes when compared to the previous study done on 01/04/13 Measurements Name Value Normal Range RVIDd (AP) 2D 3.7 cm (0.9 - 2.6) RVDdMajor (2D) 5.3 cm (2.2 - 4.4) RAd ISD 4CH 5.9 cm (3.4 - 4.9) RA (A4C)W 5.1 cm (2.9 - 4.6) IVSd (2D) 1.4 cm (0.6 - 1) LVPWd (2D) 1.4 cm (0.6 - 1) LVIDd (2D) 4.5 cm (3.6 - 5.4) LVIDs (2D) 3 cm - LV FS (2D) 32 % (25 - 45) Aortic Annulus 1.6 cm (1.4 - 2.6) Ao root diameter (2D) 2.9 cm (2.1 - 3.5) Ascending Ao 3.2 cm (2.1 - 3.4) LA dimension (AP) 2D 3.7 cm (2.3 - 3.8) LAd ISD 4CH 6.4 cm (2.9 - 5.3) LA ISD 4CH W 5.5 cm (2.5 - 4.5) Name Value Normal Range LA ESV SP 4CH (A/L) 114 ml - LA ESV SP 2CH (A/L) 96 ml - LA ESV BP (A/L) 112 ml - LA ESV BP (A/L) index 58 ml/m2 - LA ESV SP 4CH (MOD) 112 ml - LA ESV SP 2CH (MOD) 91 ml - Name Value Normal Range MV E-wave Vmax 1.08 m/sec - MV deceleration time 144.77 msec - MV A-wave Vmax 0.75 m/sec - MV E:A ratio 1.44 ratio - LV septal e' Vmax 0.05 m/sec - LV lateral e' Vmax 0.05 m/sec - LV E:e' septal ratio 21.6 ratio - LV E:e' lateral ratio 21.6 ratio - Name Value Normal Range AV Vmax 1.75 m/sec - AV VTI 43.99 cm - AV peak gradient 12.32 mmHg - AV mean gradient 6.03 mmHg - LVOT diameter 2 cm - LVOT Vmax 1.07 m/sec - LVOT VTI 29.01 cm - LVOT peak gradient 4.66 mmHg - LVOT mean gradient 2.57 mmHg - ENID Vmax 0.73 m/sec - Name Value Normal Range TR Vmax 2.9 m/sec - TR peak gradient 34 mmHg - RAP 3 mmHg - RVSP 37 mmHg - IVC diameter 2 cm - Name Value Normal Range PV Vmax 1.32 m/sec - PV peak gradient 7 mmHg -
[2017-07-04] MEDS ORDERED: Enoxaparin(*) 100 MG/ML SYR SUBCUT SCH (21:00)
[2017-07-04] MEDS: Insulin GLARGINE(*) 1 UNITS UNIT SUBCUT SCH (21:56)
[2017-07-05] MEDS: Levothyroxine TAB* 75 MCG TAB PO SCH (05:14)
[2017-07-05] MEDS: Heparin VIAL(*) 5000 UNITS/ML VIAL (FIVE THOUSAND) SUBCUT SCH ×3 (05:15→21:44)
[2017-07-05] MEDS: Insulin LISPRO* 1 UNITS UNIT SUBCUT SCH ×3 (07:25→17:13)
[2017-07-05] MEDS: Furosemide IV* 10 MG/ML VIAL (40 MG) IV SLOW PU SCH (07:48)
[2017-07-05] MEDS: Lisinopril TAB* 10 MG PO SCH (07:48)
[2017-07-05] MEDS: Gabapentin CAP(*) 300 MG PO SCH ×3 (07:49→21:42)
[2017-07-05] MEDS: traMADol TAB* 50 MG PO SCH ×2 (07:49→21:43)
[2017-07-05] MEDS: amLODIPine TAB* 5 MG PO SCH (07:49)
[2017-07-05] MEDS: Chlorthalidone TAB* 50 MG PO SCH (07:49)
[2017-07-05] MEDS: Calcitriol CAP* 0.25 MCG PO SCH (07:49)
[2017-07-05] MEDS: Potassium Chlor TAB* 10 MEQ TAB.ER PO SCH (07:50)
[2017-07-05] MEDS: Atorvastatin* 10 MG TAB PO SCH (07:50)
[2017-07-05] MEDS: Allopurinol TAB* 100 MG PO SCH (07:50)
[2017-07-05] MEDS: Insulin GLARGINE(*) 1 UNITS UNIT SUBCUT SCH ×2 (07:50→21:43)
[2017-07-05] MEDS: Nystatin CREAM* 15 GM TUBE TOPICAL SCH ×3 (07:50→21:43)
[2017-07-05] MEDS ORDERED: Docusate CAP* 100 MG PO PRN (09:33)
[2017-07-05] MEDS ORDERED: Senna TAB PO PRN (09:33)
[2017-07-05] MEDS ORDERED: Polyethylene Glycol 3350* 17 GM PACKET ONE (09:38)
[2017-07-05] MEDS: Polyethylene Glycol 3350* 17 GM PACKET PO SCH ×2 (09:40→21:44)
--- NOTE | 2017-07-05 16:04 | PN ---
Subjective Date of Service: 07/05/17 Interval History: HOSPITALIST PROGRESS NOTE Patient seen and examined at bedside. Care reviewed and d/w Fany Bauman RN. She feels a little better. She felt "foggy" overnight while on 6 liters of O2 and improved with 8 liters. Dyspnea is less intense and she denies chest pain or lightheadedness. Family History: Unchanged from Admission Social History: Unchanged from Admission Past Medical History: Unchanged from Admission Objective Active Medications: Acetaminophen (Tylenol Tab*) 975 mg PO TID PRN PRN Reason: FEVER/PAIN Allopurinol (Zyloprim Tab*) 100 mg PO DAILY [facility] Last Admin: 07/05/17 07:50 Dose: 100 mg Amlodipine Besylate (Norvasc Tab*) 5 mg PO DAILY [facility] Last Admin: 07/05/17 07:49 Dose: 5 mg Atorvastatin Calcium (Lipitor*) 10 mg PO DAILY [facility] Last Admin: 07/05/17 07:50 Dose: 10 mg Calcitriol (Rocaltrol Cap*) 0.25 mcg PO DAILY [facility] Last Admin: 07/05/17 07:49 Dose: 0.25 mcg Chlorthalidone (Hygroton Tab*) 25 mg PO DAILY [facility] Last Admin: 07/05/17 07:49 Dose: 25 mg Dextrose (D50w Syringe 50 Ml*) 12.5 gm IV PUSH .FOR FS < 60 - SS PRN PRN Reason: FS < 60 Last Admin: 07/04/17 05:48 Dose: 12.5 gm Docusate Sodium (Colace Cap*) 100 mg PO BID PRN PRN Reason: CONSTIPATION Furosemide (Lasix Iv*) 40 mg IV SLOW PU DAILY [facility] Last Admin: 07/05/17 07:48 Dose: 40 mg Gabapentin (Neurontin Cap(*)) 600 mg PO TID [facility] Last Admin: 07/05/17 13:47 Dose: 600 mg Heparin Sodium (Porcine) (Heparin Vial(*)) 5,000 units SUBCUT Q8HR [facility] Last Admin: 07/05/17 13:47 Dose: 5,000 units Hydralazine HCl (Apresoline Iv*) 5 mg IV SLOW PU Q6H PRN PRN Reason: Systolic Bp Greater Than: 180 Last Admin: 07/03/17 21:08 Dose: 5 mg Insulin Glargine (Lantus(*)) 10 units SUBCUT BEDTIME [facility] Insulin Human Lispro (Humalog*) 0 - 10 units SUBCUT AC [place] PRN Reason: Protocol Last Admin: 07/05/17 12:27 Dose: 2 units Levothyroxine Sodium (Synthroid Tab*) 75 mcg PO 0600 [facility] Last Admin: 07/05/17 05:14 Dose: 75 mcg Lisinopril (Prinivil Tab*) 20 mg PO DAILY [facility] Last Admin: 07/05/17 07:48 Dose: 20 mg Loperamide HCl (Imodium Cap*) 2 mg PO Q4H PRN PRN Reason: DIARRHEA Nystatin (Nystatin Cream*) 1 applic TOPICAL TID [facility] Last Admin: 07/05/17 13:44 Dose: Not Given Polyethylene Glycol/Electrolytes (Miralax*) 17 gm PO 0800,2100 [facility] Last Admin: 07/05/17 09:40 Dose: 17 gm Potassium Chloride (Klor Con Er Tab*) 10 meq PO DAILY [facility] Last Admin: 07/05/17 07:50 Dose: 10 meq Senna (Senokot Tab*) 2 tab PO BEDTIME PRN PRN Reason: CONSTIPATION Tramadol HCl (Ultram*) 50 mg PO BID [facility] Last Admin: 07/05/17 07:49 Dose: 50 mg Vital Signs - 8 hr 07/05/17 07/05/17 07/05/17 09:36 11:38 13:47 Temperature 97.5 F Pulse Rate 50 Respiratory 20 20 18 Rate Blood Pressure 138/50 (mmHg) O2 Sat by Pulse 100 Oximetry 07/05/17 15:37 Temperature Pulse Rate Respiratory 20 Rate Blood Pressure (mmHg) O2 Sat by Pulse Oximetry Oxygen Devices in Use Now: Simple Face Mask - 6 liters Appearance: Elderly obese lady sitting up in a chair in [facility]. Eyes: No Scleral Icterus Ears/Nose/Mouth/Throat: Mucous Membranes Moist Neck: Trachea Midline Respiratory: Symmetrical Chest Expansion and Respiratory Effort, - - BS+ bilaterally with bilateral rales from midfields down Cardiovascular: RRR - Normal S1 and S2 Extremities: - - Bilateral LE pitting edema Neurological: Alert and Oriented x 3, NL Muscle Strength and Tone Result Diagrams: 07/03/17 14:25 07/05/17 04:36 Assess/Plan/Problems-Billing Assessment: Mrs Burch is a 77yo F with PMH of obesity, type 2 DM, HTN, HLD, COPD on home O2, gout, CKD stage 3, who presented to ED with c/o progressive dyspnea, found to have probable CHF exacerbation. - Patient Problems (1) Acute and chronic respiratory failure Comment: - Patient was up to 10 liters of O2, now titred down to 8 liters - continue to titrate down - goal SO2 91%. - Secondary to CHF exacerbation. (2) CHF (congestive heart failure) Comment: - Acute diastolic CHF exacerbation secondary to dietary non compliance. - Echo showed EF 50-55% with no significant changes from 2013. - Continue diuresis. (3) D-dimer, elevated Comment: - V/Q scan showed low probablity of PE. (4) HTN (hypertension) Comment: - Continue Amlodipine and Lisinopril. (5) Bradycardia Comment: - Asymptomatic. - Bradycardia and LBBB already present in 2017. - Patient not interested in pacemaker. (6) Diabetes Comment: - Glucose on the lower side - will decrease Lantus to 10 units a day and continue SS. - A1c 5.7. (7) DVT prophylaxis Comment: - SQ heparin.
[2017-07-06] MEDS: Levothyroxine TAB* 75 MCG TAB PO SCH (05:01)
[2017-07-06] MEDS: Heparin VIAL(*) 5000 UNITS/ML VIAL (FIVE THOUSAND) SUBCUT SCH ×3 (05:02→21:24)
[2017-07-06 07:09] LABS: EGFR Non-African American 25.4 (>60)
[2017-07-06] MEDS: Nystatin CREAM* 15 GM TUBE TOPICAL SCH ×3 (08:06→21:26)
[2017-07-06] MEDS: Insulin LISPRO* 1 UNITS UNIT SUBCUT SCH ×3 (08:14→17:18)
[2017-07-06] MEDS: Polyethylene Glycol 3350* 17 GM PACKET PO SCH ×2 (08:15→21:26)
[2017-07-06] MEDS: Furosemide IV* 10 MG/ML VIAL (40 MG) IV SLOW PU SCH (08:17)
[2017-07-06] MEDS: Gabapentin CAP(*) 300 MG PO SCH ×3 (08:21→21:24)
[2017-07-06] MEDS: Calcitriol CAP* 0.25 MCG PO SCH (08:21)
[2017-07-06] MEDS: Chlorthalidone TAB* 50 MG PO SCH (08:21)
[2017-07-06] MEDS: Lisinopril TAB* 10 MG PO SCH (08:21)
[2017-07-06] MEDS: Allopurinol TAB* 100 MG PO SCH (08:22)
[2017-07-06] MEDS: Atorvastatin* 10 MG TAB PO SCH (08:22)
[2017-07-06] MEDS: Potassium Chlor TAB* 10 MEQ TAB.ER PO SCH (08:22)
[2017-07-06] MEDS: amLODIPine TAB* 5 MG PO SCH (08:23)
[2017-07-06] MEDS: traMADol TAB* 50 MG PO SCH ×2 (08:23→21:25)
--- NOTE | 2017-07-06 14:20 | PN ---
Subjective Date of Service: 07/06/17 Interval History: HOSPITALIST PROGRESS NOTE Patient seen and examined at bedside. She feels better today, breathing is getting closer to baseline on 5 liters of O2. Denies CP and palpitations. Family History: Unchanged from Admission Social History: Unchanged from Admission Past Medical History: Unchanged from Admission Objective Active Medications: Acetaminophen (Tylenol Tab*) 975 mg PO TID PRN PRN Reason: FEVER/PAIN Allopurinol (Zyloprim Tab*) 100 mg PO DAILY [facility] Last Admin: 07/06/17 08:22 Dose: 100 mg Amlodipine Besylate (Norvasc Tab*) 5 mg PO DAILY [facility] Last Admin: 07/06/17 08:23 Dose: 5 mg Atorvastatin Calcium (Lipitor*) 10 mg PO DAILY [facility] Last Admin: 07/06/17 08:22 Dose: 10 mg Calcitriol (Rocaltrol Cap*) 0.25 mcg PO DAILY [facility] Last Admin: 07/06/17 08:21 Dose: 0.25 mcg Chlorthalidone (Hygroton Tab*) 25 mg PO DAILY [facility] Last Admin: 07/06/17 08:21 Dose: 25 mg Dextrose (D50w Syringe 50 Ml*) 12.5 gm IV PUSH .FOR FS < 60 - SS PRN PRN Reason: FS < 60 Last Admin: 07/04/17 05:48 Dose: 12.5 gm Docusate Sodium (Colace Cap*) 100 mg PO BID PRN PRN Reason: CONSTIPATION Furosemide (Lasix Iv*) 40 mg IV SLOW PU DAILY [facility] Last Admin: 07/06/17 08:17 Dose: 40 mg Gabapentin (Neurontin Cap(*)) 600 mg PO TID [facility] Last Admin: 07/06/17 13:09 Dose: 600 mg Heparin Sodium (Porcine) (Heparin Vial(*)) 5,000 units SUBCUT Q8HR [facility] Last Admin: 07/06/17 13:09 Dose: 5,000 units Hydralazine HCl (Apresoline Iv*) 5 mg IV SLOW PU Q6H PRN PRN Reason: Systolic Bp Greater Than: 180 Last Admin: 07/03/17 21:08 Dose: 5 mg Insulin Glargine (Lantus(*)) 10 units SUBCUT BEDTIME [facility] Last Admin: 07/05/17 21:43 Dose: 10 units Insulin Human Lispro (Humalog*) 0 - 10 units SUBCUT AC [facility] PRN Reason: Protocol Last Admin: 07/06/17 12:26 Dose: 2 units Levothyroxine Sodium (Synthroid Tab*) 75 mcg PO 0600 [facility] Last Admin: 07/06/17 05:01 Dose: 75 mcg Lisinopril (Prinivil Tab*) 20 mg PO DAILY [facility] Last Admin: 07/06/17 08:21 Dose: 20 mg Loperamide HCl (Imodium Cap*) 2 mg PO Q4H PRN PRN Reason: DIARRHEA Nystatin (Nystatin Cream*) 1 applic TOPICAL TID [facility] Last Admin: 07/06/17 13:04 Dose: Not Given Polyethylene Glycol/Electrolytes (Miralax*) 17 gm PO 0800,2100 [facility] Last Admin: 07/06/17 08:15 Dose: 17 gm Potassium Chloride (Klor Con Er Tab*) 10 meq PO DAILY [facility] Last Admin: 07/06/17 08:22 Dose: 10 meq Senna (Senokot Tab*) 2 tab PO BEDTIME PRN PRN Reason: CONSTIPATION Tramadol HCl (Ultram*) 50 mg PO BID [facility] Last Admin: 07/06/17 08:23 Dose: 50 mg Vital Signs - 8 hr 07/06/17 07/06/17 07/06/17 07:38 08:00 08:21 Temperature 97.6 F Pulse Rate 48 Respiratory 20 18 18 Rate Blood Pressure 164/47 (mmHg) O2 Sat by Pulse 98 Oximetry 07/06/17 07/06/17 07/06/17 08:23 11:38 13:09 Temperature 98.7 F Pulse Rate 50 Respiratory 18 20 18 Rate Blood Pressure 163/55 (mmHg) O2 Sat by Pulse 95 Oximetry Oxygen Devices in Use Now: OxyMask - 5 liters Appearance: Elderly lady sitting up in a chair in [facility]. Eyes: No Scleral Icterus Ears/Nose/Mouth/Throat: Mucous Membranes Moist Neck: Trachea Midline Respiratory: Symmetrical Chest Expansion and Respiratory Effort, - - BS+ bilaterally with bibasilar crackles Cardiovascular: RRR - Normal S1 and S2 Neurological: Alert and Oriented x 3, NL Muscle Strength and Tone Result Diagrams: 07/03/17 14:25 07/06/17 06:22 Assess/Plan/Problems-Billing Assessment: Mrs Burch is a 77yo F with PMH of obesity, type 2 DM, HTN, HLD, COPD on home O2, gout, CKD stage 3, who presented to ED with c/o progressive dyspnea, found to have probable CHF exacerbation. - Patient Problems (1) Acute and chronic respiratory failure Comment: - Patient was on 10 liters of O2 on admission, now titred down to 5 liters - continue to titrate down - goal SO2 around 91%. - Secondary to CHF exacerbation. (2) CHF (congestive heart failure) Comment: - Acute diastolic CHF exacerbation secondary to dietary non compliance. - Echo showed EF 50-55% with no significant changes from 2013. - Continue diuresis. (3) D-dimer, elevated Comment: - V/Q scan showed low probablity of PE. (4) HTN (hypertension) Comment: - Continue Amlodipine and Lisinopril. (5) Bradycardia Comment: - Asymptomatic. - Bradycardia and LBBB already present in 2017. - Patient not interested in pacemaker. (6) Diabetes Comment: - Glucose on the lower side - will decrease Lantus to 10 units a day and continue SS. - A1c 5.7. (7) DVT prophylaxis Comment: - SQ heparin.
[2017-07-06] MEDS: Insulin GLARGINE(*) 1 UNITS UNIT SUBCUT SCH (21:24)
[2017-07-07 05:50] LABS: EGFR Non-African American 28.4 (>60)
[2017-07-07] MEDS: Levothyroxine TAB* 75 MCG TAB PO SCH (05:54)
[2017-07-07] MEDS: Heparin VIAL(*) 5000 UNITS/ML VIAL (FIVE THOUSAND) SUBCUT SCH ×3 (05:55→20:40)
[2017-07-07] MEDS: Insulin LISPRO* 1 UNITS UNIT SUBCUT SCH ×3 (09:11→17:27)
[2017-07-07] MEDS: Gabapentin CAP(*) 300 MG PO SCH ×3 (09:12→20:27)
[2017-07-07] MEDS: Polyethylene Glycol 3350* 17 GM PACKET PO SCH ×2 (09:12→20:29)
[2017-07-07] MEDS: Allopurinol TAB* 100 MG PO SCH (09:13)
[2017-07-07] MEDS: amLODIPine TAB* 5 MG PO SCH (09:13)
[2017-07-07] MEDS: Atorvastatin* 10 MG TAB PO SCH (09:13)
[2017-07-07] MEDS: Furosemide IV* 10 MG/ML VIAL (40 MG) IV SLOW PU SCH (09:13)
[2017-07-07] MEDS: Potassium Chlor TAB* 10 MEQ TAB.ER PO SCH (09:13)
[2017-07-07] MEDS: Lisinopril TAB* 10 MG PO SCH (09:13)
[2017-07-07] MEDS: traMADol TAB* 50 MG PO SCH ×2 (09:14→20:28)
[2017-07-07] MEDS: hydrALAZINE IV* 20 MG/ML VIAL IV SLOW PU PRN ×2 (09:14→20:32)
[2017-07-07] MEDS: Nystatin CREAM* 15 GM TUBE TOPICAL SCH ×4 (09:46→22:00)
[2017-07-07] MEDS: Chlorthalidone TAB* 50 MG PO SCH (09:55)
[2017-07-07] MEDS: Calcitriol CAP* 0.25 MCG PO SCH (09:55)
[2017-07-07] MEDS: Albuterol/Ipratropium NEB.SOL* Albuterol 2.5 MG/Ipratropium 0.5 MG 3 ML INH PRN (10:28)
[2017-07-07] MEDS ORDERED: amLODIPine TAB* 5 MG PO ONE (10:42)
[2017-07-07] MEDS ORDERED: Lisinopril TAB* 10 MG PO ONE (10:43)
[2017-07-07] MEDS ORDERED: Furosemide IV* 10 MG/ML 2 ML VIAL (20 MG) IV SLOW PU ONE (10:44)
[2017-07-07] MEDS ORDERED: hydrALAZINE IV* 20 MG/ML VIAL IV SLOW PU ONE (13:00)
--- NOTE | 2017-07-07 15:26 | PN ---
Subjective Date of Service: 07/07/17 Interval History: HOSPITALIST PROGRESS NOTE Patient seen and examined at bedside multiple times today. She states she slept well, but has had recurrent dyspnea since breakfast. Was on 4 liters of O2, now requires 7 liters. BP was also elevated. Denies CP or palpitations. Family History: Unchanged from Admission Social History: Unchanged from Admission Past Medical History: Unchanged from Admission Objective Active Medications: Acetaminophen (Tylenol Tab*) 975 mg PO TID PRN PRN Reason: FEVER/PAIN Albuterol/Ipratropium (Duoneb (Albuterol 2.5 Mg/Ipratropium 0.5 Mg)) 1 neb INH Q4H PRN PRN Reason: SOB/WHEEZING Last Admin: 07/07/17 10:28 Dose: 1 neb Allopurinol (Zyloprim Tab*) 100 mg PO DAILY [facility] Last Admin: 07/07/17 09:13 Dose: 100 mg Amlodipine Besylate (Norvasc Tab*) 10 mg PO DAILY [facility] Atorvastatin Calcium (Lipitor*) 10 mg PO DAILY [facility] Last Admin: 07/07/17 09:13 Dose: 10 mg Calcitriol (Rocaltrol Cap*) 0.25 mcg PO DAILY [facility] Last Admin: 07/07/17 09:55 Dose: 0.25 mcg Chlorthalidone (Hygroton Tab*) 25 mg PO DAILY [facility] Last Admin: 07/07/17 09:55 Dose: 25 mg Dextrose (D50w Syringe 50 Ml*) 12.5 gm IV PUSH .FOR FS < 60 - SS PRN PRN Reason: FS < 60 Last Admin: 07/04/17 05:48 Dose: 12.5 gm Docusate Sodium (Colace Cap*) 100 mg PO BID PRN PRN Reason: CONSTIPATION Furosemide (Lasix Iv*) 40 mg IV SLOW PU DAILY [facility] Last Admin: 07/07/17 09:13 Dose: 40 mg Gabapentin (Neurontin Cap(*)) 600 mg PO TID [facility] Last Admin: 07/07/17 13:37 Dose: 600 mg Heparin Sodium (Porcine) (Heparin Vial(*)) 5,000 units SUBCUT Q8HR [facility] Last Admin: 07/07/17 13:36 Dose: 5,000 units Hydralazine HCl (Apresoline Iv*) 5 mg IV SLOW PU Q6H PRN PRN Reason: Systolic Bp Greater Than: 180 Last Admin: 07/07/17 09:14 Dose: 5 mg Insulin Glargine (Lantus(*)) 10 units SUBCUT BEDTIME [facility] Last Admin: 07/06/17 21:24 Dose: 10 units Insulin Human Lispro (Humalog*) 0 - 10 units SUBCUT AC [facility] PRN Reason: Protocol Last Admin: 07/07/17 11:52 Dose: 4 units Levothyroxine Sodium (Synthroid Tab*) 75 mcg PO 0600 [facility] Last Admin: 07/07/17 05:54 Dose: 75 mcg Lisinopril (Prinivil Tab*) 20 mg PO DAILY [facility] Last Admin: 07/07/17 09:13 Dose: 20 mg Loperamide HCl (Imodium Cap*) 2 mg PO Q4H PRN PRN Reason: DIARRHEA Nystatin (Nystatin Cream*) 1 applic TOPICAL TID [facility] Last Admin: 07/07/17 13:25 Dose: Not Given Polyethylene Glycol/Electrolytes (Miralax*) 17 gm PO 0800,2100 [facility] Last Admin: 07/07/17 09:12 Dose: 17 gm Potassium Chloride (Klor Con Er Tab*) 10 meq PO DAILY [facility] Last Admin: 07/07/17 09:13 Dose: 10 meq Senna (Senokot Tab*) 2 tab PO BEDTIME PRN PRN Reason: CONSTIPATION Tramadol HCl (Ultram*) 50 mg PO BID [facility] Last Admin: 07/07/17 09:14 Dose: 50 mg Vital Signs - 8 hr 07/07/17 07/07/17 07/07/17 07:39 08:11 09:12 Temperature 97.4 F Pulse Rate 59 Respiratory 20 24 18 Rate Blood Pressure 190/65 (mmHg) O2 Sat by Pulse 97 Oximetry 07/07/17 07/07/17 07/07/17 09:14 10:30 12:27 Temperature 97.8 F Pulse Rate 103 58 Respiratory 18 22 24 Rate Blood Pressure 182/70 171/60 (mmHg) O2 Sat by Pulse 94 91 Oximetry 07/07/17 13:37 Temperature Pulse Rate Respiratory 18 Rate Blood Pressure (mmHg) O2 Sat by Pulse Oximetry Oxygen Devices in Use Now: OxyMask - 7 liters Appearance: Elderly obese sitting up in a recliner in [facility]. Eyes: No Scleral Icterus Ears/Nose/Mouth/Throat: Mucous Membranes Moist Neck: Trachea Midline Respiratory: Symmetrical Chest Expansion and Respiratory Effort, - - BS+ bilaterally with scattered wheezing and bibasilar crackles. After breathing treatment, wheezes resolved. Cardiovascular: RRR - Normal S1 and S2 Abdominal: NL Sounds; No Tenderness; No Distention - obese Neurological: Alert and Oriented x 3, NL Muscle Strength and Tone Result Diagrams: 07/03/17 14:25 07/07/17 05:05 Assess/Plan/Problems-Billing Assessment: Mrs Burch is a 77yo F with PMH of obesity, type 2 DM, HTN, HLD, COPD on home O2, gout, CKD stage 3, who presented to ED with c/o progressive dyspnea, found to have probable CHF exacerbation. - Patient Problems (1) Acute and chronic respiratory failure Comment: - Had worsening of dyspnea this AM, now up to 7 liters of O2 again. - Secondary to CHF exacerbation. (2) CHF (congestive heart failure) Comment: - Acute diastolic CHF exacerbation secondary to dietary non compliance. - Echo showed EF 50-55% with no significant changes from 2013. - Weight went up again today, bu she denies dietary non compliance ( had kit vikki bars in her table, but denies eating salty foods). - Will give higher dose Furosemide today and monitor. (3) HTN (hypertension) Comment: - Elevated today - will increase Amlodipine and Lisinopril - monitor. (4) D-dimer, elevated Comment: - V/Q scan showed low probablity of PE. (5) Bradycardia Comment: - Asymptomatic. - Bradycardia and LBBB already present in 2017. - Patient not interested in any aggressive measures, including pacemaker. (6) Diabetes Comment: - Requiring much lower dose of Lantus while in the hospital, but had glucose spike last night, likely secondary to chocolate bar. - A1c 5.7. (7) DVT prophylaxis Comment: - SQ heparin.
[2017-07-07] MEDS: Insulin GLARGINE(*) 1 UNITS UNIT SUBCUT SCH (20:43)
[2017-07-08] MEDS: Heparin VIAL(*) 5000 UNITS/ML VIAL (FIVE THOUSAND) SUBCUT SCH ×3 (05:24→20:29)
[2017-07-08] MEDS: Levothyroxine TAB* 75 MCG TAB PO SCH (05:35)
[2017-07-08] MEDS: Allopurinol TAB* 100 MG PO SCH (09:00)
[2017-07-08] MEDS: Furosemide IV* 10 MG/ML VIAL (40 MG) IV SLOW PU SCH (09:00)
[2017-07-08] MEDS: Gabapentin CAP(*) 300 MG PO SCH ×3 (09:00→20:02)
[2017-07-08] MEDS: Calcitriol CAP* 0.25 MCG PO SCH (09:00)
[2017-07-08] MEDS: Lisinopril TAB* 10 MG PO SCH (09:01)
[2017-07-08] MEDS: Chlorthalidone TAB* 50 MG PO SCH (09:01)
[2017-07-08] MEDS: traMADol TAB* 50 MG PO SCH ×2 (09:02→20:03)
[2017-07-08] MEDS: Atorvastatin* 10 MG TAB PO SCH (09:03)
[2017-07-08] MEDS: amLODIPine TAB* 5 MG PO SCH (09:03)
[2017-07-08] MEDS: Potassium Chlor TAB* 10 MEQ TAB.ER PO SCH (09:03)
[2017-07-08] MEDS: Polyethylene Glycol 3350* 17 GM PACKET PO SCH ×2 (09:04→20:12)
[2017-07-08] MEDS: Nystatin CREAM* 15 GM TUBE TOPICAL SCH ×4 (09:04→21:01)
[2017-07-08] MEDS: Insulin LISPRO* 1 UNITS UNIT SUBCUT SCH ×3 (09:04→17:34)
[2017-07-08] MEDS ORDERED: Furosemide IV* 10 MG/ML 2 ML VIAL (20 MG) IV SLOW PU ONE (14:00)
--- NOTE | 2017-07-08 15:42 | PN ---
Subjective Date of Service: 07/08/17 Interval History: Denies SON. On facemask at 4 L. Desat to 82% walking to bathroom on 3-4L NC but did not feel SOB Discussed need to stay for further treatment and patient became very angry and snapped for this author to leave. Attempted to answer any questions about therapy and decision making but pt stated "no one tells me anything" and "you will only tell me I have more problems." I told pt she can avail herself of my time as much as she would like to discuss care. She asked that the nurse call her daughter but would not share the number with me to do so. Family History: Unchanged from Admission Social History: Unchanged from Admission Past Medical History: Unchanged from Admission Objective Active Medications: Acetaminophen (Tylenol Tab*) 975 mg PO TID PRN PRN Reason: FEVER/PAIN Albuterol/Ipratropium (Duoneb (Albuterol 2.5 Mg/Ipratropium 0.5 Mg)) 1 neb INH Q4H PRN PRN Reason: SOB/WHEEZING Last Admin: 07/07/17 10:28 Dose: 1 neb Allopurinol (Zyloprim Tab*) 100 mg PO DAILY [facility] Last Admin: 07/08/17 09:00 Dose: 100 mg Amlodipine Besylate (Norvasc Tab*) 10 mg PO DAILY [facility] Last Admin: 07/08/17 09:03 Dose: 10 mg Atorvastatin Calcium (Lipitor*) 10 mg PO DAILY [facility] Last Admin: 07/08/17 09:03 Dose: 10 mg Calcitriol (Rocaltrol Cap*) 0.25 mcg PO DAILY [facility] Last Admin: 07/08/17 09:00 Dose: 0.25 mcg Chlorthalidone (Hygroton Tab*) 25 mg PO DAILY [facility] Last Admin: 07/08/17 09:01 Dose: 25 mg Dextrose (D50w Syringe 50 Ml*) 12.5 gm IV PUSH .FOR FS < 60 - SS PRN PRN Reason: FS < 60 Last Admin: 07/04/17 05:48 Dose: 12.5 gm Docusate Sodium (Colace Cap*) 100 mg PO BID PRN PRN Reason: CONSTIPATION Furosemide (Lasix Iv*) 40 mg IV SLOW PU DAILY [facility] Last Admin: 07/08/17 09:00 Dose: 40 mg Gabapentin (Neurontin Cap(*)) 600 mg PO TID [facility] Last Admin: 07/08/17 13:05 Dose: 600 mg Heparin Sodium (Porcine) (Heparin Vial(*)) 5,000 units SUBCUT Q8HR [facility] Last Admin: 07/08/17 13:05 Dose: 5,000 units Hydralazine HCl (Apresoline Iv*) 5 mg IV SLOW PU Q6H PRN PRN Reason: Systolic Bp Greater Than: 180 Last Admin: 07/07/17 20:32 Dose: 5 mg Insulin Glargine (Lantus(*)) 10 units SUBCUT BEDTIME [facility] Last Admin: 07/07/17 20:43 Dose: 10 units Insulin Human Lispro (Humalog*) 0 - 10 units SUBCUT AC [facility] PRN Reason: Protocol Last Admin: 07/08/17 13:05 Dose: 6 units Levothyroxine Sodium (Synthroid Tab*) 75 mcg PO 0600 [facility] Last Admin: 07/08/17 05:35 Dose: 75 mcg Lisinopril (Prinivil Tab*) 20 mg PO DAILY [facility] Last Admin: 07/08/17 09:01 Dose: 20 mg Loperamide HCl (Imodium Cap*) 2 mg PO Q4H PRN PRN Reason: DIARRHEA Nystatin (Nystatin Cream*) 1 applic TOPICAL TID [facility] Last Admin: 07/08/17 13:09 Dose: Not Given Polyethylene Glycol/Electrolytes (Miralax*) 17 gm PO 0800,2100 [facility] Last Admin: 07/08/17 09:04 Dose: Not Given Potassium Chloride (Klor Con Er Tab*) 10 meq PO DAILY [facility] Last Admin: 07/08/17 09:03 Dose: 10 meq Senna (Senokot Tab*) 2 tab PO BEDTIME PRN PRN Reason: CONSTIPATION Tramadol HCl (Ultram*) 50 mg PO BID [facility] Last Admin: 07/08/17 09:02 Dose: 50 mg Vital Signs - 8 hr 07/08/17 07/08/17 07/08/17 07:39 08:02 08:25 Temperature 97.9 F Pulse Rate 54 65 Respiratory 18 20 Rate Blood Pressure 149/62 (mmHg) O2 Sat by Pulse 95 Oximetry 07/08/17 07/08/17 07/08/17 09:00 09:02 11:26 Temperature 97.9 F Pulse Rate 54 Respiratory 16 16 20 Rate Blood Pressure 148/87 (mmHg) O2 Sat by Pulse 98 Oximetry 07/08/17 07/08/17 07/08/17 11:54 11:56 13:05 Temperature Pulse Rate Respiratory 18 18 18 Rate Blood Pressure (mmHg) O2 Sat by Pulse Oximetry Oxygen Devices in Use Now: Nasal Cannula - 4L, OxyMask Appearance: sitting in chair, NAD Eyes: No Scleral Icterus Ears/Nose/Mouth/Throat: NL Teeth, Lips, Gums, Clear Oropharnyx Neck: NL Appearance and Movements; NL JVP Respiratory: Symmetrical Chest Expansion and Respiratory Effort, - - rales left base up 03/02 Cardiovascular: RRR Abdominal: NL Sounds; No Tenderness; No Distention, No Hepatosplenomegaly Lymphatic: No Cervical Adenopathy Extremities: - - 1+ b/l LE edema Neurological: Alert and Oriented x 3 Result Diagrams: 07/03/17 14:25 07/07/17 05:05 Additional Lab and Data: Lab Results 07/03/17 07/03/17 07/03/17 Range/Units 14:25 14:25 14:25 WBC 10.3 (3.5-10.8) 10^3/ul RBC 3.47 L (4.0-5.4) 10^6/ul Hgb 11.7 L (12.0-16.0) g/dl Hct 36 (35-47) % MCV 103 H (80-97) fL MCH 34 H (27-31) pg MCHC 33 (31-36) g/dl RDW 16 H (10.5-15) % Plt Count 202 (150-450) 10^3/ul MPV 7.9 (7.4-10.4) um3 Neut % (Auto) 73.7 (38-83) % Lymph % (Auto) 15.3 L (25-47) % Schley % (Auto) 7.4 H (0-7) % Eos % (Auto) 2.9 (0-6) % Baso % (Auto) 0.7 (0-2) % Absolute Neuts (auto) 7.6 (1.5-7.7) 10^3/ul Absolute Lymphs (auto) 1.6 (1.0-4.8) 10^3/ul Absolute Monos (auto) 0.8 (0-0.8) 10^3/ul Absolute Eos (auto) 0.3 (0-0.6) 10^3/ul Absolute Basos (auto) 0.1 (0-0.2) 10^3/ul Absolute Nucleated RBC 0 10^3/ul Nucleated RBC % 0.1 INR (Anticoag Therapy) 1.04 H (0.77-1.02) APTT 32.9 (26.0-36.3) seconds D-Dimer, Quantitative 631 H (Less Than 230) ng/mL Sodium 145 (139-145) mmol/L Potassium 4.3 (3.5-5.0) mmol/L Chloride 109 (101-111) mmol/L Carbon Dioxide 26 (22-32) mmol/L Anion Gap 10 (2-11) mmol/L BUN 36 H (6-24) mg/dL Creatinine 1.91 H (0.51-0.95) mg/dL Est GFR ( Amer) 32.9 (>60) Est GFR (Non-Af Amer) 25.5 (>60) BUN/Creatinine Ratio 18.8 (8-20) Glucose 77 (70-100) mg/dL Lactic Acid (0.5-2.0) mmol/L Calcium 10.4 H (8.6-10.3) mg/dL Magnesium 1.8 L (1.9-2.7) mg/dL Total Bilirubin 0.60 (0.2-1.0) mg/dL AST 19 (13-39) U/L ALT 13 (7-52) U/L Alkaline Phosphatase 106 H (34-104) U/L Total Creatine Kinase 48 (10-223) U/L CK-MB (CK-2) 2.7 (0.6-6.3) ng/mL Troponin I 0.03 (<0.04) ng/mL C-Reactive Protein 6.50 H (< 5.00) mg/L B-Natriuretic Peptide ( - 100) pg/mL Total Protein 7.9 (6.4-8.9) g/dL Albumin 4.4 (3.2-5.2) g/dL Globulin 3.5 (2-4) g/dL Albumin/Globulin Ratio 1.3 (1-3) Lipase 37 (11.0-82.0) U/L TSH 1.90 (0.34-5.60) mcIU/mL Urine Color Urine Appearance Urine pH (5-9) Ur Specific [place] (1.010-1.030) Urine Protein (Negative) Urine Ketones (Negative) Urine Blood (Negative) Urine Nitrate (Negative) Urine Bilirubin (Negative) Urine Urobilinogen (Negative) Ur Leukocyte Esterase (Negative) Urine WBC (Auto) (Absent) Urine RBC (Auto) (Absent) Ur Squamous Epith Cells (Absent) Ur Renal Epithelial Cell (Absent) Urine Bacteria (Absent) Urine Glucose (Negative) Urine Ascorbic Acid (Negative) 07/03/17 07/03/17 07/03/17 Range/Units 14:25 14:25 16:28 WBC (3.5-10.8) 10^3/ul RBC (4.0-5.4) 10^6/ul Hgb (12.0-16.0) g/dl Hct (35-47) % MCV (80-97) fL MCH (27-31) pg MCHC (31-36) g/dl RDW (10.5-15) % Plt Count (150-450) 10^3/ul MPV (7.4-10.4) um3 Neut % (Auto) (38-83) % Lymph % (Auto) (25-47) % Schley % (Auto) (0-7) % Eos % (Auto) (0-6) % Baso % (Auto) (0-2) % Absolute Neuts (auto) (1.5-7.7) 10^3/ul Absolute Lymphs (auto) (1.0-4.8) 10^3/ul Absolute Monos (auto) (0-0.8) 10^3/ul Absolute Eos (auto) (0-0.6) 10^3/ul Absolute Basos (auto) (0-0.2) 10^3/ul Absolute Nucleated RBC 10^3/ul Nucleated RBC % INR (Anticoag Therapy) (0.77-1.02) APTT (26.0-36.3) seconds D-Dimer, Quantitative (Less Than 230) ng/mL Sodium (139-145) mmol/L Potassium (3.5-5.0) mmol/L Chloride (101-111) mmol/L Carbon Dioxide (22-32) mmol/L Anion Gap (2-11) mmol/L BUN (6-24) mg/dL Creatinine (0.51-0.95) mg/dL Est GFR ( Amer) (>60) Est GFR (Non-Af Amer) (>60) BUN/Creatinine Ratio (8-20) Glucose (70-100) mg/dL Lactic Acid 1.0 (0.5-2.0) mmol/L Calcium (8.6-10.3) mg/dL Magnesium (1.9-2.7) mg/dL Total Bilirubin (0.2-1.0) mg/dL AST (13-39) U/L ALT (7-52) U/L Alkaline Phosphatase (34-104) U/L Total Creatine Kinase (10-223) U/L CK-MB (CK-2) (0.6-6.3) ng/mL Troponin I (<0.04) ng/mL C-Reactive Protein (< 5.00) mg/L B-Natriuretic Peptide 2006 H ( - 100) pg/mL Total Protein (6.4-8.9) g/dL Albumin (3.2-5.2) g/dL Globulin (2-4) g/dL Albumin/Globulin Ratio (1-3) Lipase (11.0-82.0) U/L TSH (0.34-5.60) mcIU/mL Urine Color Yellow Urine Appearance Cloudy Urine pH 5.0 (5-9) Ur Specific [place] 1.014 (1.010-1.030) Urine Protein 2+(100 mg/dl) A (Negative) Urine Ketones Negative (Negative) Urine Blood Negative (Negative) Urine Nitrate Negative (Negative) Urine Bilirubin Negative (Negative) Urine Urobilinogen Negative (Negative) Ur Leukocyte Esterase 1+ A (Negative) Urine WBC (Auto) 3+(>20/hpf) A (Absent) Urine RBC (Auto) Absent (Absent) Ur Squamous Epith Cells Present A (Absent) Ur Renal Epithelial Cell Present A (Absent) Urine Bacteria Absent (Absent) Urine Glucose Negative (Negative) Urine Ascorbic Acid * A (Negative) Assess/Plan/Problems-Billing Assessment: Mrs Burch is a 77yo F with PMH of obesity, type 2 DM, HTN, HLD, COPD on home 2L O2, gout, CKD stage 3, who presented to ED with c/o progressive dyspnea, found to have probable CHF exacerbation. - Patient Problems (1) Acute and chronic respiratory failure Comment: - Had worsening of dyspnea 07/07, with increasing o2 demand to 7 liters which improved with more aggressive diuresis - Secondary to CHF exacerbation. c/w lasix standing and add additional 20IV this afternoon check electrolytes tomorrow (2) CHF (congestive heart failure) Comment: - Acute diastolic CHF exacerbation secondary to dietary non compliance. - Echo showed EF 50-55% with no significant changes from 2013. Additional 20IV lasix to standing dose (3) HTN (hypertension) Comment: increased 07/07 Amlodipine and Lisinopril - monitor. norvasc 10, lisinopril 20, chlorthalidone 25, lasix 40 (4) Bradycardia Comment: - Asymptomatic. - Bradycardia and LBBB already present in 2017. - Patient not interested in any aggressive measures, including pacemaker. (5) D-dimer, elevated Comment: - V/Q scan showed low probablity of PE. (6) Diabetes Comment: - Requiring much lower dose of Lantus while in the hospital, but had glucose spike 07/06 night, likely secondary to chocolate bar. - A1c 5.7. (7) DVT prophylaxis Comment: SQ heparin
[2017-07-08] MEDS: hydrALAZINE IV* 20 MG/ML VIAL IV SLOW PU PRN (20:08)
[2017-07-08] MEDS: Insulin GLARGINE(*) 1 UNITS UNIT SUBCUT SCH (20:29)
[2017-07-08] MEDS ORDERED: Insulin LISPRO* 1 UNITS UNIT SUBCUT ONE (21:03)
[2017-07-08] MEDS: Albuterol/Ipratropium NEB.SOL* Albuterol 2.5 MG/Ipratropium 0.5 MG 3 ML INH PRN (22:52)
[2017-07-09] MEDS: Levothyroxine TAB* 75 MCG TAB PO SCH (05:11)
[2017-07-09] MEDS: Heparin VIAL(*) 5000 UNITS/ML VIAL (FIVE THOUSAND) SUBCUT SCH ×2 (05:11→13:12)
[2017-07-09 05:35] LABS: ABS Basophils 0 10^3/ul (0-0.2); ABS Eosinophils 0.7 10^3/ul (0-0.6); ABS Lymphocytes 1.6 10^3/ul (1.0-4.8); ABS Monocytes 1.3 10^3/ul (0-0.8); ABS Neutrophils 6.7 10^3/ul (1.5-7.7); ABS Nucleated RBC 0 10^3/ul; Eosinophil % 6.3 % (0-6); Hematocrit 31 % (35-47); Hemoglobin 10.3 g/dl (12.0-16.0); Lymphocyte % 15.8 % (25-47); Mean Corpuscular HGB Conc 33 g/dl (31-36); Mean Corpuscular Hemoglobin 34 pg (27-31); Mean Corpuscular Volume 102 fL (80-97); Mean Platelet Volume 9.1 um3 (7.4-10.4); Nucleated Red Blood Cells % 0; Platelet Count 178 10^3/ul (150-450); Red Blood Count 3.07 10^6/ul (4.0-5.4); Red Cell Distribution Width 16 % (10.5-15); White Blood Count 10.3 10^3/ul (3.5-10.8)
[2017-07-09] MEDS: Gabapentin CAP(*) 300 MG PO SCH ×2 (07:49→13:12)
[2017-07-09] MEDS: Lisinopril TAB* 10 MG PO SCH (07:49)
[2017-07-09] MEDS: Furosemide IV* 10 MG/ML VIAL (40 MG) IV SLOW PU SCH (07:49)
[2017-07-09] MEDS: amLODIPine TAB* 5 MG PO SCH (07:49)
[2017-07-09] MEDS: Allopurinol TAB* 100 MG PO SCH (07:49)
[2017-07-09] MEDS: traMADol TAB* 50 MG PO SCH (07:50)
[2017-07-09] MEDS: Chlorthalidone TAB* 50 MG PO SCH (07:50)
[2017-07-09] MEDS: Potassium Chlor TAB* 10 MEQ TAB.ER PO SCH (07:50)
[2017-07-09] MEDS: Calcitriol CAP* 0.25 MCG PO SCH (07:50)
[2017-07-09] MEDS: Atorvastatin* 10 MG TAB PO SCH (07:51)
[2017-07-09] MEDS: Insulin LISPRO* 1 UNITS UNIT SUBCUT SCH ×2 (09:05→13:11)
[2017-07-09] MEDS: Polyethylene Glycol 3350* 17 GM PACKET PO SCH (09:05)
[2017-07-09] MEDS: Nystatin CREAM* 15 GM TUBE TOPICAL SCH (11:39)
[2017-07-09 12:12] VITALS: BP 154/41
--- NOTE | 2017-07-09 22:11 | DS ---
CC: Dr. Lopez * DISCHARGE SUMMARY: DATE OF ADMISSION: 07/03/17 DATE OF DISCHARGE: 07/09/17 PRIMARY CARE PROVIDER: Dr. Mani Lopez. PRIMARY DIAGNOSIS: Congestive heart failure exacerbation. SECONDARY DIAGNOSES: Include: 1. Type 2 diabetes. 2. Hypertension. 3. Hyperlipidemia. 4. Chronic obstructive pulmonary disease with chronic respiratory failure. 5. Chronic kidney disease. 6. Gout. 7. Bradycardia. MEDICATIONS ON DISCHARGE: Include: 1. Levothyroxine 75 mcg daily. 2. Lantus 38 units twice daily. 3. Metformin 1000 mg twice daily. 4. Calcitriol 0.25 mcg daily. 5. Lisinopril 20 mg daily. 6. Allopurinol 100 mg daily. 7. Acetaminophen 975 mg 3 times a day. 8. Potassium chloride 10 mEq daily. 9. Imodium 2 mg every 4 hours as needed. 10. Gabapentin 600 mg 2 times a day. 11. Tramadol 50 mg 3 times a day as needed. 12. Simvastatin 20 mg daily. 13. Lasix 40 mg daily; please note increased from 20 mg daily. 14. Chlorthalidone 25 mg daily; please note separation from atenolol and discontinuation of atenolol. 15. Amlodipine 10 mg daily; please note increased dose from 5 mg to 10 mg. IMAGING PERFORMED DURING HOSPITAL STAY: Includes lung V/Q scan, impression: Low probability for acute PE. PERTINENT LABORATORY DATA: Notable for BNP of 2006 on presentation. HISTORY OF PRESENT ILLNESS AND HOSPITAL COURSE: This is a 77-year-old female with past medical history as outlined in history of present illness on the day of admission including type 2 diabetes, hypertension, obesity, COPD with chronic respiratory failure, and CKD, presented to the hospital with increasing shortness of breath especially dyspnea on exertion. 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 Of note, she did have bradycardia and her atenolol was held during the course of her hospital stay. The patient would not like to pursue any interventions for bradycardia including interventions like permanent pacemaker. The patient's Lantus was decreased to 10 units, but she was maintained with the sliding scale. She will be discharged on lower dose Lantus of 20 units but with metformin restarted, please follow and adjust as necessary after discharge. On the day of discharge , she ambulated with 2 L of oxygen without oxygen saturation remaining at 93%. There were no complications during the course of this hospital stay. Of note, her hemoglobin A1c was 5.7 on this hospital stay. FOLLOWUP INSTRUCTIONS: 1. Follow blood pressure, adjust medications as necessary. 2. Follow heart rate. Further conversation depending on the patient's goals of care. 3. Follow blood sugar, adjust as necessary. There has been a significant decrement in her need for long-acting insulin. 4. Follow electrolytes and kidney function on higher dose Lasix. Adjust Lasix to maintain euvolemia. Reasons to return to the hospital include, but are not limited to, recurrent or worsening symptoms, chest pain, shortness of breath, nausea, vomiting, lightheadedness, loss of consciousness, bleeding from any source, inability to obtain or tolerate medication discussed with the patient, she acknowledged understanding. TIME SPENT: Greater than 45 minutes was spent on the discharge of this patient , greater than half was spent [id number] with the patient. [id number]/[facility] #: [id number] LIDIA
== END 2017-07-09 16:37 | disposition home or self-care (01) | DRG 291 ==
LOC: ED 12:29 → MEDTELE 17:46 → OBSVTOIN 07-04 11:55
PROVIDERS: ADMIT Internal Medicine; ATTEND Internal Medicine
DX: I13.0 Hypertensive heart and chronic kidney disease with heart failure and stage 1 through stage 4 chronic kidney disease, or unspecified chronic kidney disease (principal); I50.31 Acute diastolic (congestive) heart failure; J96.21 Acute and chronic respiratory failure with hypoxia; N18.4 Chronic kidney disease, stage 4 (severe); E11.22 Type 2 diabetes mellitus with diabetic chronic kidney disease; E83.42 Hypomagnesemia; E78.5 Hyperlipidemia, unspecified; J44.9 Chronic obstructive pulmonary disease, unspecified; Z99.81 Dependence on supplemental oxygen; M10.9 Gout, unspecified; G89.29 Other chronic pain; I44.7 Left bundle-branch block, unspecified; R00.1 Bradycardia, unspecified; M51.36 Other intervertebral disc degeneration, lumbar region; Z79.84 Long term (current) use of oral hypoglycemic drugs; Z79.4 Long term (current) use of insulin; Z79.899 Other long term (current) drug therapy; Z88.0 Allergy status to penicillin; Z88.8 Allergy status to other drugs, medicaments and biological substances; Z91.048 Other nonmedicinal substance allergy status; Z82.49 Family history of ischemic heart disease and other diseases of the circulatory system; Z83.3 Family history of diabetes mellitus; Z87.891 Personal history of nicotine dependence; Z79.1 Long term (current) use of non-steroidal anti-inflammatories (NSAID)
CPT/HCPCS: 36415; 71045; 71046; 78582; 80048; 80053; 81003; 81015; 82550; 82553; 82947; 83036; 83605; 83690; 83735; 83880; 84443; 84484; 85025; 85379; 85610; 85730; 86140; 87086; 93005; 93306; 94640; 99283; A9270-GY; A9540; A9558; G0378; G8978-GP-CI; G8979-GP-CI; G8980-GP-CI; J0360; J1644; J1650; J1940; J3475